=== PATIENT | male | born 1955 | race Caucasian/White ===

== ENCOUNTER → 2017-02-05 | Outpatient (CLI) | payer BC ==
[~2017-02-05] MED LIST: ASPI81TA28 PO; ATEN-175 PO; ATV/2 PO; MISC1CAP60 PO; MISCCAP82 PO
== END | disposition home or self-care (01) ==
LOC: C.LABMFLN 08:06
PROVIDERS: ATTEND Urology
DX: R97.20 Elevated prostate specific antigen [PSA] (principal); N41.9 Inflammatory disease of prostate, unspecified

== ENCOUNTER → 2017-03-12 | Outpatient (CLI) | payer BC | END | disposition home or self-care (01) | LOC: C.RDSM 14:23 | PROVIDERS: ATTEND Family Medicine | DX: G57.52 Tarsal tunnel syndrome, left lower limb (principal) ==

== ENCOUNTER → 2018-02-10 | Outpatient (CLI) | payer BC | END | disposition home or self-care (01) | LOC: C.LABMFLN 08:07 | PROVIDERS: ATTEND Urology | DX: N40.1 Benign prostatic hyperplasia with lower urinary tract symptoms (principal) ==

== ENCOUNTER 2022-01-18 08:14 | Inpatient (IN) ==
[2022-01-18] MEDS ORDERED: ONDANSETRON INJ 2 MG/ML 2 ML VIAL IV STA (08:34)
[2022-01-18] MEDS ORDERED: SODIUM CHLORIDE 0.9% 1000ML 1,000 ML IV STA (08:34)
[2022-01-18] MEDS ORDERED: MoRPHine SULFATE 4 MG/ML 1 ML CARP\\VIAL IV STA ×2 (08:34→09:02)
[2022-01-18 08:43] LABS: Basophils # (auto) 0.03 K/uL (0-0.2); Basophils % (auto) 0.3 %; Eosinophils # (auto) 0.29 K/uL (0-0.50); Eosinophils % (auto) 3.3 %; Hematocrit (blood only) 44.6 % (40.1-51.0); Immature Granulocytes # (auto) 0.03 K/uL (0.00-0.02); Immature Granulocytes % (auto) 0.3 %; Lymphocytes # (auto) 1.14 K/uL (1.2-3.4); Mean Corpuscular Hemoglobin 32.8 pg (25.0-34.0); Mean Corpuscular Hgb Conc 33.6 g/dL (32.0-36.0); Mean Corpuscular Volume 97.4 fL (80.0-100.0); Monocytes # (auto) 0.49 K/uL (0.24-0.82); Monocytes % (auto) 5.6 %; Neutrophils # (auto) 6.76 K/uL (1.4-6.5); Neutrophils % (auto) 77.5 %; Platelet Count 144 K/uL (130-400); RDW Coefficient of Variation 12.1 % (11.5-14.5); RDW Standard Deviation 43.4 fL (36.4-46.3); Red Blood Count 4.58 M/uL (4.63-6.08); White Blood Count 8.74 K/ul (4.8-10.8)
[2022-01-18 08:50] LABS: Appearance Urine Clear (Clear); Bacteria Urine Automated Negative (Negative); Bilirubin Urine Negative (Negative); Blood Urine Negative (Negative); Color Urine Yellow; Glucose Urine UA Negative (Negative); Ketones Urine Negative (Negative); Leukocyte Esterase Urine Trace (Negative); Nitrite Urine Negative (Negative); Protein Urine Negative (Negative); RBC Urine Automated 0-4 /hpf (0-4); Specific Gravity Urine 1.025 (1.000-1.030); Urobilinogen Urine Negative (Negative)
--- NOTE | 2022-01-18 09:08 | Emergency Department Note ---
History of Present Illness General Chief complaint: Abdominal Pain Stated complaint: ABDOMINAL PAIN Time Seen by Provider: 01/18/22 08:21 History of Present Illness Maximum Pain Intensity: 7 66-year-old male who presents to the emergency department with his with complaint of left flank and left lower quadrant/lower abdominal pain radiating into his testicles and scrotum. The patient reports that the pain started this morning around 6 AM, and has progressively worsened. The patient did have a prior history of diverticulitis microperforation approximately 8 years ago. The patient did experience the pain approximately 2 weeks ago, and took prophylactic Cipro/Flagyl with improvement of symptoms. The patient has not noticed any change in stool color or consistency. He denies any urinary symptoms or darkening urine. He denies history of kidney stones. The patient denies any alleviating or aggravating factors for his pain, and rates his discomfort a 7 out of 10. Home Medications Medication Instructions Recorded Confirmed Type atenolol 50 mg tablet 75 mg PO DAILY 01/18/22 01/18/22 History atorvastatin 40 mg tablet 40 mg PO HS 01/18/22 01/18/22 History dutasteride 0.5 mg capsule 0.5 mg PO HS 01/18/22 01/18/22 History ibuprofen 125 mg-acetaminophen 250 1 tab PO BID 01/18/22 01/18/22 History mg tablet (Advil Dual Action) lorazepam 2 mg tablet 2 mg PO BID 01/18/22 01/18/22 History tamsulosin 0.4 mg capsule 0.4 mg PO HS 01/18/22 01/18/22 History Allergies Allergy/AdvReac Type Severity Reaction Status Date / Time No Known Allergies Allergy Unverified 01/11/20 10:41 Past Med/Surg History Medical History Benign prostatic hyperplasia HTN (hypertension) Perforated diverticulitis UTI (urinary tract infection) Surgical History H/O shoulder surgery Social History Smoking Status: Never smoker Tobacco Type: Cigarettes Second Hand Exposure: No; Hx Alcohol Use: No Hx Substance Use: No Preferred Language: Pashto Communication Ability: Effective Dragger Required: No Beliefs That Will Affect Care: None marital status: Current Living Situation: Spouse current occupational status: retired Other Information That Helps Us Care for You: No Feels Safe at Home: Yes Assistive Devices: None Review of Systems 10 system review was performed and was negative except for pertinent positives and negatives as indicated in history of present illness Physical Exam Vital Signs Vital Signs - 24 hr 01/18/22 08:19 01/18/22 10:15 Temperature 36.3 C L Temperature Source Temporal Artery Scan Pulse Rate 76 Pulse Rate [Apical] 78 Respiratory Rate 18 18 Blood Pressure 144/88 H Blood Pressure [Left Arm] 133/77 Blood Pressure Mean 106 Blood Pressure Mean [Left Arm] 95 Pulse Oximetry 95 96 Oxygen Delivery Method Room Air Room Air Sepsis Recent Fever Within 48 Hours No Sepsis New/Unexplained Change in Mental Status No Sepsis Action Taken by Nursing No Action Required CONSTITUTIONAL: Healthy and well nourished. Alert and oriented X 3. Patient appears in mild discomfort. HEENT: No scleral icterus or conjunctival injection/pallor. NECK: Full active range of motion without discomfort. LYMPHATICS: No cervical chain adenopathy. RESPIRATORY: Clear to auscultation bilaterally with no wheezing, crackles, rhonchi or stridor. CARDIOVASCULAR: Regular rate and rhythm with no murmurs, rubs or gallops. GASTROINTESTINAL: Bowel sounds present in all quadrants. Patient has left lower quadrant and lower abdominal tenderness to palpation without rigidity, guarding or rebound. Negative McBurney's point tenderness. Negative CVA tenderness. MUSCULOSKELETAL: Full range of motion of all joints without discomfort. INTEGUMENTARY: No rash or other significant dermatologic conditions noted. HEMATOLOGIC: No ecchymosis or petechiae. PSYCHIATRIC: Positive affect. NEUROLOGIC: No focal neurologic deficits noted. Course Course Patient history and physical exam were performed. Nurses notes were reviewed. Vital signs were reviewed, showing an elevated blood pressure. IV access was established, and labs were drawn. The patient was hydrated with a liter normal saline, and administered IV morphine and Zofran for pain. Urinalysis shows no hematuria or signs of infection. Further review of labs shows a normal white co unt with left shift and 3% bandemia. CMP shows a mildly elevated fasting glucose, otherwise electrolytes, LFTs and lipase are normal. Urinalysis shows no hematuria or evidence of infection. Prior to CT, the patient was administered an additional dose of IV morphine. CT with IV contrast of the ab domen and pelvis shows evidence for acute sigmoid diverticulitis with numerous foci of intraperitoneal free air indicating perforation. There was no evidence for abscess. Findings were discussed with the patient, as well as Dr. Schneider, ED attending physician, who agrees with hospitalist consultation. An order was placed for IV Zosyn. The case was discussed with our [facility] hospitalist, Dr. Mueller, as well as Dae Fields PA-C with general surgery, who indicates that this is a nonsurgical management, and has recommended admission with IV antibiotics. Please see the hospitalist and surgical dictations for further treatment and final disposition. COVID-19 test was negative. Administered Medications Acetaminophen (Ofirmev) 1,000 mg in 100 mls @ 400 mls/hr IV Q8H PRN PRN Reason: Pain or fever Stop: 01/21/22 11:50 Last Infusion: 01/18/22 14:59 Dose: 0 mls/hr Documented by: [id number] Admin: 01/18/22 14:40 Dose: 400 mls/hr Documented by: [id number] Dextrose/Lactated Ringer's (D5w And Lactated Ringers) 1,000 mls @ 125 mls/hr IV .Q8H BINU Stop: 02/17/22 11:59 Last Admin: 01/18/22 12:55 Dose: 125 mls/hr Documented by: [id number] Discontinued Medications Sodium Chloride (Nss 1000ml) 1,000 mls @ 999 mls/hr IV .Q1H1M STA Stop: 01/18/22 09:34 Last Infusion: 01/18/22 10:06 Dose: 0 mls/hr Documented by: [id number] Admin: 01/18/22 08:48 Dose: 999 mls/hr Documented by: [id number] Piperacillin Sod/Tazobactam Sod (Zosyn) 4.5 gm in 120 mls @ 240 mls/hr IV NOW ONE Stop: 01/18/22 10:30 Last Infusion: 01/18/22 10:47 Dose: 0 mls/hr Documented by: [id number] Admin: 01/18/22 10:17 Dose: 240 mls/hr Documented by: [id number] Lactated Ringer's (Lr) 1,000 mls @ 125 mls/hr IV .Q8H BINU Stop: 02/17/22 11:50 Last Admin: 01/18/22 13:25 Dose: Not Given Documented by: [id number] Ioversol (Optiray 320 100ml) 94 ml IV ONCE ONE Stop: 01/18/22 09:26 Last Admin: 01/18/22 09:25 Dose: 94 ml Documented by: [id number] Morphine Sulfate (Morphine Sulfate 4 Mg/Ml 1 Ml Carp\Vial) 4 mg IV NOW STA Stop: 01/18/22 08:35 Last Admin: 01/18/22 08:47 Dose: 4 mg Documented by: [id number] Morphine Sulfate (Morphine Sulfate 4 Mg/Ml 1 Ml Carp\Vial) 4 mg IV NOW STA Stop: 01/18/22 09:03 Last Admin: 01/18/22 09:08 Dose: 4 mg Documented by: [id number] Ondansetron HCl (Ondansetron Inj 2 Mg/Ml 2 Ml Vial) 4 mg IV NOW STA Stop: 01/18/22 08:35 Last Admin: 01/18/22 08:48 Dose: 4 mg Documented by: [id number] Medical Decision Making Medical Records Attestation: I reviewed the patient's medical records. Home Medications Current Medication List: was personally reviewed by me Laboratory Data Attestation: I reviewed the patient's lab results. Result diagrams: 01/18/22 08:30 01/18/22 08:30 Lab Results 01/18/22 01/18/22 01/18/22 Range/Units 08:25 08:30 08:30 WBC 8.74 (4.8-10.8) K/ul RBC 4.58 L (4.63-6.08) M/uL Hgb 15.0 (14.0-18.0) g/dl Hct 44.6 (40.1-51.0) % MCV 97.4 (80.0-100.0) fL MCH 32.8 (25.0-34.0) pg MCHC 33.6 (32.0-36.0) g/dL RDW Std Deviation 43.4 (36.4-46.3) fL RDW Coeff of Gonzalo 12.1 (11.5-14.5) % Plt Count 144 (130-400) K/uL MPV 12.0 (9.4-12.4) fL Immature Gran % (Auto) 0.3 % Neut % (Auto) 77.5 % Lymph % (Auto) 13.0 % Moca % (Auto) 5.6 % Eos % (Auto) 3.3 % Baso % (Auto) 0.3 % Neut # (Auto) 6.76 H (1.4-6.5) K/uL Lymph # (Auto) 1.14 L (1.2-3.4) K/uL Moca # (Auto) 0.49 (0.24-0.82) K/uL Eos # (Auto) 0.29 (0-0.50) K/uL Baso # (Auto) 0.03 (0-0.2) K/uL Immature Gran # (Auto) 0.03 H (0.00-0.02) K/uL Sodium 139 (136-145) mmol/L Potassium 3.7 (3.5-5.1) mmol/L Chloride 105 (98-107) mmol/L Carbon Dioxide 29 (21-32) mmol/L Anion Gap 5 (3-11) BUN 13 (6-23) mg/dl Creatinine 0.83 (0.6-1.4) mg/dl Est Cr Clr Drug Dosing 92.8 ml/min Est GFR ( Amer) 107.8 ml/min Est GFR (Non-Af Amer) 93.0 ml/min BUN/Creatinine Ratio 15.7 (10-20) Glucose 113 H (70-99(Fasting)) mg/dl Calcium 8.6 (8.5-10.1) mg/dl Total Bilirubin 0.9 (0.2-1.0) mg/dl AST 19 (13-39) U/L ALT 20 (7-52) U/L Alkaline Phosphatase 61 (34-104) U/L Total Protein 7.4 (6.0-8.3) gm/dl Albumin 4.5 (3.4-5.0) gm/dl Globulin 2.9 (2.5-4.0) gm/dl Albumin/Globulin Ratio 1.6 (0.9-2) Lipase 31 (11-82) U/L Urine Color Yellow Urine Appearance Clear (Clear) Urine pH 5.0 (4.5-7.5) Ur Specific Alvin 1.025 (1.000-1.030) Urine Protein Negative (Negative) Urine Glucose (UA) Negative (Negative) Urine Ketones Negative (Negative) Urine Blood Negative (Negative) Urine Nitrite Negative (Negative) Urine Bilirubin Negative (Negative) Urine Urobilinogen Negative (Negative) Ur Leukocyte Esterase Trace H (Negative) Urine WBC (Auto) 1-5 (0-5) /hpf Urine RBC (Auto) 0-4 (0-4) /hpf U Hyaline Cast (Auto) 1-5 (0-5) /lpf U Epithel Cells (Auto) 10-20 H (0-5) /lpf Urine Bacteria (Auto) Negative (Negative) SARS-CoV-2, RNA, NAAT (NEGATIVE) 01/18/22 Range/Units 10:10 WBC (4.8-10.8) K/ul RBC (4.63-6.08) M/uL Hgb (14.0-18.0) g/dl Hct (40.1-51.0) % MCV (80.0-100.0) fL MCH (25.0-34.0) pg MCHC (32.0-36.0) g/dL RDW Std Deviation (36.4-46.3) fL RDW Coeff of Gonzalo (11.5-14.5) % Plt Count (130-400) K/uL MPV (9.4-12.4) fL Immature Gran % (Auto) % Neut % (Auto) % Lymph % (Auto) % Moca % (Auto) % Eos % (Auto) % Baso % (Auto) % Neut # (Auto) (1.4-6.5) K/uL Lymph # (Auto) (1.2-3.4) K/uL Moca # (Auto) (0.24-0.82) K/uL Eos # (Auto) (0-0.50) K/uL Baso # (Auto) (0-0.2) K/uL Immature Gran # (Auto) (0.00-0.02) K/uL Sodium (136-145) mmol/L Potassium (3.5-5.1) mmol/L Chloride (98-107) mmol/L Carbon Dioxide (21-32) mmol/L Anion Gap (3-11) BUN (6-23) mg/dl Creatinine (0.6-1.4) mg/dl Est Cr Clr Drug Dosing ml/min Est GFR ( Amer) ml/min Est GFR (Non-Af Amer) ml/min BUN/Creatinine Ratio (10-20) Glucose (70-99(Fasting)) mg/dl Calcium (8.5-10.1) mg/dl Total Bilirubin (0.2-1.0) mg/dl AST (13-39) U/L ALT (7-52) U/L Alkaline Phosphatase (34-104) U/L Total Protein (6.0-8.3) gm/dl Albumin (3.4-5.0) gm/dl Globulin (2.5-4.0) gm/dl Albumin/Globulin Ratio (0.9-2) Lipase (11-82) U/L Urine Color Urine Appearance (Clear) Urine pH (4.5-7.5) Ur Specific Alvin (1.000-1.030) Urine Protein (Negative) Urine Glucose (UA) (Negative) Urine Ketones (Negative) Urine Blood (Negative) Urine Nitrite (Negative) Urine Bilirubin (Negative) Urine Urobilinogen (Negative) Ur Leukocyte Esterase (Negative) Urine WBC (Auto) (0-5) /hpf Urine RBC (Auto) (0-4) /hpf U Hyaline Cast (Auto) (0-5) /lpf U Epithel Cells (Auto) (0-5) /lpf Urine Bacteria (Auto) (Negative) SARS-CoV-2, RNA, NAAT NEGATIVE (NEGATIVE) Imaging Data Attestation: I personally reviewed and interpreted this imaging study as follows: My Impression: My interpretation of CT with IV contrast of the abdomen and pelvis shows evidence for sigmoid diverticulitis, as well as multiple foci of intraperitoneal free air, concerning for perforation. No appendicitis or bowel obstruction noted. Radiologist report was also reviewed. Radiologist's Impression: Abdomen/Pelvis CT 01/18/22 08:34 CT SCAN OF THE ABDOMEN AND PELVIS WITH IV CONTRAST CLINICAL HISTORY: Left lower quadrant abdominal pain. COMPARISON STUDY: Abdominal CT dated 07/20/2013. TECHNIQUE: Following the IV administration of 94 cc of Optiray 320, CT scan of the abdomen and pelvis is performed from the lung bases to the proximal femora. Images are reviewed in the axial, sagittal, and coronal planes. IV contrast was administered without complication. A dose lowering technique was utilized adhering to the principles of ALARA. CT DOSE: 544.44 mGy.cm FINDINGS: Lung bases: The heart is normal in size and without pericardial effusion. The coronary arteries are densely calcified. There is a small hiatal hernia. The lung bases are clear noting bibasilar scarring/atelectasis. Liver: The contrast-enhanced liver is normal in size, contour, and attenuation. There is no intrahepatic biliary ductal dilatation. The hepatic veins and portal veins are patent. Gallbladder: Unremarkable. Spleen: Normal in size and attenuation. Pancreas: Unremarkable. Adrenal glands: Unremarkable. Kidneys: The contrast enhanced kidneys are normal in size and without hydronephrosis. The kidneys enhance symmetrically. A 3.5 cm cyst is noted in the left kidney. Abdominal vasculature: The abdominal aorta is normal in course and caliber noting mild atherosclerotic calcification. Bowel: There is moderate colonic diverticulosis. There is wall thickening with surrounding inflammation involving the sigmoid colon consistent with acute diverticulitis. Adjacent fluid indicates perforation. No organized fluid collection is seen to indicate abscess. There is no bowel obstruction. Moderate fecal retention is noted in the right colon. The appendix is well-visualized and normal. Peritoneum: There are numerous tiny foci of intraperitoneal free air is seen throughout the abdomen. No abdominal ascites is identified. There is a fat- containing umbilical hernia. Lymphadenopathy: Prominent mesenteric lymph nodes are likely reactive. Pelvic viscera: The prostate gland is enlarged and heterogeneous noting median lobe hypertrophy. The bladder wall is thickened and trabeculated indicating chronic outlet obstruction. There are several bladder diverticula which measure up to 3.3 cm. Skeletal structures: There is mild to moderate lumbosacral spondylosis. No lytic or blastic lesions are seen. IMPRESSION: 1. Colonic diverticulosis with evidence of acute sigmoid diverticulitis. 2. There are numerous foci of intraperitoneal free air indicating perforation. 3. No organized fluid collection is seen to suggest abscess. 4. Prostatomegaly with evidence of chronic bladder outlet obstruction. 5. Additional findings as above. ACT 112: Negative or not required by law. Electronically signed by: Enrico Murillo M.D. 01/18/2022 9:44 AM Blood Pressure Blood Pressure Findings: Elevated blood pressure MDM Narrative Patient presents emergency department with complaint of left lower quadrant and left flank pain. Presenting symptoms and physical exam findings were concerning for acute diverticulitis versus renal colic secondary to ureteral calculus. Urinalysis shows no hematuria or signs of infection, and CT imaging also does not show evidence for obstructive uropathy, hydronephrosis or obvious ureteral calculus. CT imaging is concerning for sigmoid diverticulitis with perforation. The case was discussed with surgery, who does not feel that surgical intervention is warranted. They will perform further evaluation, along with the hospitalist service. Impression & Plan Diverticulitis of colon with perforation, Abdominal pain, acute, left lower quadrant Discharge Plan Visit Data Chief Complaint: Abdominal Pain Stated Complaint: ABDOMINAL PAIN ED Midlevel Provider: Crescencio Ferreira Discharge Problem: Diverticulitis of colon with perforation, Abdominal pain, acute, left lower quadrant Patient Disposition: Admitted As Inpatient Discharge Instructions Interventions: ED Discharge Assessment Last Done: 01/18/22 11:17
[2022-01-18 09:14] LABS: Albumin Globulin Ratio 1.6 (0.9-2); Albumin Level 4.5 gm/dl (3.4-5.0); BUN Creatinine Ratio 15.7 (10-20); Bilirubin,Total 0.9 mg/dl (0.2-1.0); Calcium 8.6 mg/dl (8.5-10.1); Creatinine Clr Calc Pharmacy 92.8 ml/min; Est GFR (African American) 107.8 ml/min; Globulin 2.9 gm/dl (2.5-4.0); Potassium 3.7 mmol/L (3.5-5.1); Total Protein 7.4 gm/dl (6.0-8.3)
[2022-01-18] MEDS ORDERED: OPTIRAY 320 100ml IV ONE (09:25)
--- NOTE | 2022-01-18 09:45 | CT Scan Report ---
CT SCAN OF THE ABDOMEN AND PELVIS WITH IV CONTRAST CLINICAL HISTORY: Left lower quadrant abdominal pain. COMPARISON STUDY: Abdominal CT dated 07/20/2013. TECHNIQUE: Following the IV administration of 94 cc of Optiray 320, CT scan of the abdomen and pelvi s is performed from the lung bases to the proximal femora. Images are reviewed in the axial, sagittal , and coronal planes. IV contrast was administered without complication. A dose lowering technique wa s utilized adhering to the principles of ALARA. CT DOSE: 544.44 mGy.cm FINDINGS: Lung bases: The heart is normal in size and without pericardial effusion. The coronary arteries are d ensely calcified. There is a small hiatal hernia. The lung bases are clear noting bibasilar scarring/ atelectasis. Liver: The contrast-enhanced liver is normal in size, contour, and attenuation. There is no intrahepa tic biliary ductal dilatation. The hepatic veins and portal veins are patent. Gallbladder: Unremarkable. Spleen: Normal in size and attenuation. Pancreas: Unremarkable. Adrenal glands: Unremarkable. Kidneys: The contrast enhanced kidneys are normal in size and without hydronephrosis. The kidneys enh ance symmetrically. A 3.5 cm cyst is noted in the left kidney. Abdominal vasculature: The abdominal aorta is normal in course and caliber noting mild atheroscleroti c calcification. Bowel: There is moderate colonic diverticulosis. There is wall thickening with surrounding inflammati on involving the sigmoid colon consistent with acute diverticulitis. Adjacent fluid indicates perfora tion. No organized fluid collection is seen to indicate abscess. There is no bowel obstruction. Moder ate fecal retention is noted in the right colon. The appendix is well-visualized and normal. Peritoneum: There are numerous tiny foci of intraperitoneal free air is seen throughout the abdomen. No abdominal ascites is identified. There is a fat-containing umbilical hernia. Lymphadenopathy: Prominent mesenteric lymph nodes are likely reactive. Pelvic viscera: The prostate gland is enlarged and heterogeneous noting median lobe hypertrophy. The bladder wall is thickened and trabeculated indicating chronic outlet obstruction. There are several b ladder diverticula which measure up to 3.3 cm. Skeletal structures: There is mild to moderate lumbosacral spondylosis. No lytic or blastic lesions a re seen. IMPRESSION: 1. Colonic diverticulosis with evidence of acute sigmoid diverticulitis. 2. There are numerous foci of intraperitoneal free air indicating perforation. 3. No organized fluid collection is seen to suggest abscess. 4. Prostatomegaly with evidence of chronic bladder outlet obstruction. 5. Additional findings as above. ACT 112: Negative or not required by law. Electronically signed by: Enrico Murillo M.D. 01/18/2022 9:44 AM
[2022-01-18] MEDS ORDERED: PIPERACILLIN/TAZOBACTAM 4.5 GM/120 ML BAG IV ONE (10:01)
--- NOTE | 2022-01-18 10:30 | History & Physical Report ---
Date of Service January 18, 2022 Assessment & Plan (1) Perforated diverticulitis: Plan: One hospitalization but multiple other episodes treated at home. Continue IV zosyn. Strict NPO. D5LR @ 125 ml/hr Consult general surgery Follow up colonoscopy as outpatient (2) Benign prostatic hyperplasia: Plan: Continue tamsulosin and dutasteride when able to take PO - will hold for now (3) HTN (hypertension): Plan: Hold atenolol (4) Hyperlipidemia: Plan: Hold atorvastatin while NPO Plan: VTE Prophylaxis - Lovenox 40mg SQ daily Diet - NPO Disposition - admit to med/surg Admission and Anticipated Discharge Date Admission Date: January 18, 2022 History of Present Illness Chief Complaint: Abdominal pain Primary Care Provider: Tomas Lee MD Ashwin Pro is a 66 year old male who presents to the ER with abdominal pain that started at 6am this morning. The pain was severe enough it woke him up. Severity 7/10 at worst, currently 0/10 after morphine given in the ER. Pain mainly on left side of abdomen but also radiates to suprapubic area and left scrotum, worse on releasing pressure. No fever or chills. No diarrhea or constipation. He drinks prune juice on a daily basis to help with chronic constipation which he puts down to his medications. He had a previous diverticulitis episode in 2013 with perforation requiring hospitalization for 6 days. He reports the pain currently appears to be more spread out across his abdomen. He reports approximately 5 episodes treated at home in between then and now. Last colonoscopy 2 years ago. In the ER CT abdomen/pelvis showed evidence of acute diverticulitis with numerous intermediate of intraperitoneal free air indicating perforation. He was referred to medicine for admission and ongoing management. Allergies Allergy/AdvReac Type Severity Reaction Status Date / Time No Known Allergies Allergy Unverified 01/11/20 10:41 Home Medications Medication Instructions Recorded Confirmed Type atenolol 50 mg tablet 75 mg PO DAILY 01/18/22 01/18/22 History atorvastatin 40 mg tablet 40 mg PO HS 01/18/22 01/18/22 History dutasteride 0.5 mg capsule 0.5 mg PO HS 01/18/22 01/18/22 History ibuprofen 125 mg-acetaminophen 250 1 tab PO BID 01/18/22 01/18/22 History mg tablet (Advil Dual Action) lorazepam 2 mg tablet 2 mg PO BID 01/18/22 01/18/22 History tamsulosin 0.4 mg capsule 0.4 mg PO HS 01/18/22 01/18/22 History Past Med/Surg History Medical History Benign prostatic hyperplasia HTN (hypertension) Perforated diverticulitis UTI (urinary tract infection) Surgical History H/O shoulder surgery Social History Smoking Status: Never smoker Tobacco Type: Cigarettes Second Hand Exposure: No; Hx Alcohol Use: No Hx Substance Use: No Preferred Language: Indonesian Communication Ability: Effective Senior Vice President & General Counsel Required: No Beliefs That Will Affect Care: None marital status: Current Living Situation: Spouse current occupational status: retired Other Information That Helps Us Care for You: No Feels Safe at Home: Yes Assistive Devices: None Review of Systems Review of Systems: All systems reviewed & are unremarkable except as noted in HPI & below Physical Exam Constitutional: WD/WN, vitals as above Eyes: + anicteric sclerae; normal pupil size Respiratory: normal respiratory effort, lungs clear to auscultation Cardiovascular: RRR, no murmur, no edema Gastrointestinal (Abdomen): Percussion/Palpation: + abdomen tender (with rebound tenderness throughout, pain worse on LLQ), + guarding (LLQ) and abdomen soft; abdomen not rigid Musculoskeletal: no cyanosis or clubbing, extremities motor strength 5/5 Skin: no rashes, warm and dry Neurologic: moves all extremities and awake; not confused Psychiatric: A+Ox3, euthymic affect Results & Data Results & Data ([facility]) Vital Signs (Past 12 Hours) Vital Signs Temp Pulse Pulse Resp BP BP Pulse Ox 01/18/22 10:15 78 18 133/77 96 01/18/22 08:19 36.3 C L 76 18 144/88 H 95 Laboratory Results Abnormal lab results 01/18/22 01/18/22 01/18/22 Range/Units 08:25 08:30 08:30 RBC 4.58 L (4.63-6.08) M/uL Neut # (Auto) 6.76 H (1.4-6.5) K/uL Lymph # (Auto) 1.14 L (1.2-3.4) K/uL Immature Gran # (Auto) 0.03 H (0.00-0.02) K/uL Glucose 113 H (70-99(Fasting)) mg/dl Ur Leukocyte Esterase Trace H (Negative) U Epithel Cells (Auto) 10-20 H (0-5) /lpf Diagnostic Findings CT SCAN OF THE ABDOMEN AND PELVIS WITH IV CONTRAST CLINICAL HISTORY: Left lower quadrant abdominal pain. COMPARISON STUDY: Abdominal CT dated 07/20/2013. TECHNIQUE: Following the IV administration of 94 cc of Optiray 320, CT scan of the abdomen and pelvis is performed from the lung bases to the proximal femora. Images are reviewed in the axial, sagittal, and coronal planes. IV contrast was administered without complication. A dose lowering technique was utilized adhering to the principles of ALARA. CT DOSE: 544.44 mGy.cm FINDINGS: Lung bases: The heart is normal in size and without pericardial effusion. The coronary arteries are densely calcified. There is a small hiatal hernia. The lung bases are clear noting bibasilar scarring/atelectasis. Liver: The contrast-enhanced liver is normal in size, contour, and attenuation. There is no intrahepatic biliary ductal dilatation. The hepatic veins and portal veins are patent. Gallbladder: Unremarkable. Spleen: Normal in size and attenuation. Pancreas: Unremarkable. Adrenal glands: Unremarkable. Kidneys: The contrast enhanced kidneys are normal in size and without hydronephrosis. The kidneys enhance symmetrically. A 3.5 cm cyst is noted in the left kidney. Abdominal vasculature: The abdominal aorta is normal in course and caliber noting mild atherosclerotic calcification. Bowel: There is moderate colonic diverticulosis. There is wall thickening with surrounding inflammation involving the sigmoid colon consistent with acute diverticulitis. Adjacent fluid indicates perforation. No organized fluid collection is seen to indicate abscess. There is no bowel obstruction. Moderate fecal retention is noted in the right colon. The appendix is well-visualized and normal. Peritoneum: There are numerous tiny foci of intraperitoneal free air is seen thr oughout the abdomen. No abdominal ascites is identified. There is a fat- containing umbilical hernia. Lymphadenopathy: Prominent mesenteric lymph nodes are likely reactive. Pelvic viscera: The prostate gland is enlarged and heterogeneous noting median lobe hypertrophy. The bladder wall is thickened and trabeculated indicating chronic outlet obstruction. There are several bladder diverticula which measure up to 3.3 cm. Skeletal structures: There is mild to moderate lumbosacral spondylosis. No lytic or blastic lesions are seen. IMPRESSION: 1. Colonic diverticulosis with evidence of acute sigmoid diverticulitis. 2. There are numerous foci of intraperitoneal free air indicating perforation. 3. No organized fluid collection is seen to suggest abscess. 4. Prostatomegaly with evidence of chronic bladder outlet obstruction. 5. Additional findings as above. Medications Administered ER Medications Given: NSS 1L bolus Morphine 4mg IV x2 Zosyn 4.5g IV Code Status & VTE Plan Code Status Full VTE Prophylaxis Plan VTE Prophylaxis will be ordered: Yes PG Care Time/CCT Total # of Minutes Spent Total Time Spent with Patient: Total time spent is greater than 50% in coordination of care (as documented) at patient's floor/unit and/or counseling patient: Coding Level of Care Code 26194 Initial Inpt Care Lvl 2 Diagnoses Perforated diverticulitis K57.80 Benign prostatic hyperplasia N40.0 HTN (hypertension) I10 Hyperlipidemia E78.5
[2022-01-18] MEDS ORDERED: LACTATED RINGER'S 1,000 ML IV SCH (11:51)
[2022-01-18] MEDS ORDERED: MoRPHine SULFATE 4 MG/ML 1 ML CARP\\VIAL IV PRN (11:51)
--- NOTE | 2022-01-18 12:03 | Surgery Consultation ---
Date of Consultation January 18, 2022 Assessment & Plan (1) Perforated diverticulitis: Recurrent diverticulitis, microperforation. No acute abdominal findings, white count normal. Continue Zosyn and keep NPO for 24-48 hours. Expect he will improve on IV therapy, but nearing the point of discussing elective resection in the future. Supervising Physician Co-Signing Physician Notes Dr. Alarcon saw the patient in his room with his at bedside-he appears to be very stable to present time He does have some lower abdominal and left-sided abdominal pain and tenderness. We will continue him n.p.o. for now Possibly give him some ice over the next 48 hours and then begin clear liquids and advance slowly He will likely require 4 to 5 days of IV antibiotics and then p.o. antibiotics for approximately 2 weeks total He may require colonoscopy sooner than the 5-year plan We may consider CT scan if the patient worsens History of Present Illness Attending Physician: Bairon Mueller MD History of Present Illness 66 y/o male hospitalized 8 years ago for first attack of diverticulitis with microperforation. Has had 5 attacks since and has supply of cipro/flagyl at home. He had symptoms about a month ago and completed 14 days of antibiotics. Nicholls normal over past two weeks until this morning he woke up with severe LLQ pain. Also his pain last month was more intense than usual. No fevers or chills. Takes prune juice daily for 2+ years, bowel movements have been normal recently. Last colonoscopy in Aug 2019. Allergies Allergy/AdvReac Type Severity Reaction Status Date / Time No Known Allergies Allergy Unverified 01/11/20 10:41 Home Medications Medication Instructions Recorded Confirmed Type atenolol 50 mg tablet 75 mg PO DAILY 01/18/22 01/18/22 History atorvastatin 40 mg tablet 40 mg PO HS 01/18/22 01/18/22 History dutasteride 0.5 mg capsule 0.5 mg PO HS 01/18/22 01/18/22 History ibuprofen 125 mg-acetaminophen 250 1 tab PO BID 01/18/22 01/18/22 History mg tablet (Advil Dual Action) lorazepam 2 mg tablet 2 mg PO BID 01/18/22 01/18/22 History tamsulosin 0.4 mg capsule 0.4 mg PO HS 01/18/22 01/18/22 History Patient History Medical History Benign prostatic hyperplasia HTN (hypertension) Perforated diverticulitis UTI (urinary tract infection) Surgical History H/O shoulder surgery Social History Smoking Status: Never smoker Tobacco Type: Cigarettes Second Hand Exposure: No; Hx Alcohol Use: No Hx Substance Use: No Preferred Language: Serbian Communication Ability: Effective Air Crew Supervisor Required: No Beliefs That Will Affect Care: None marital status: Current Living Situation: Spouse current occupational status: retired Other Information That Helps Us Care for You: No Feels Safe at Home: Yes Assistive Devices: None Review of Systems Constitutional: no fever, no chills, no malaise and no anorexia Gastrointestinal: + abdominal pain and + bloating; no nausea, no vomiting, no change in bowel habits, no constipation and no diarrhea/loose stools Physical Exam Constitutional: WD/WN, vitals as above Respiratory: normal respiratory effort, lungs clear to auscultation Cardiovascular: RRR, no murmur, no edema Gastrointestinal (Abdomen): Inspection/Auscultation: abdomen not distended Percussion/Palpation: + abdomen tender (LLQ), + guarding and abdomen soft Results & Data ([facility]) Vital Signs (Past 12 Hours) Vital Signs Temp Pulse Pulse Resp BP BP Pulse Ox 01/18/22 10:15 78 18 133/77 96 01/18/22 08:19 36.3 C L 76 18 144/88 H 95 PG Care Time/CCT Total # of Minutes Spent Total Time Spent with Patient: Total time spent is greater than 50% in coordination of care (as documented) at patient's floor/unit and/or counseling patient: Coding Level of Care Code 23287 Inpt Consult Level 3 Diagnoses Perforated diverticulitis K57.80
[2022-01-18] MEDS: D5W AND LACTATED RINGERS 1,000 ML IV SCH ×2 (12:55→20:28)
[2022-01-18] MEDS: ACETAMINOPHEN 1,000 MG/100 ML VIAL IV PRN (14:40)
[2022-01-18] MEDS: PIPERACILLIN/TAZOBACTAM 3.375 GM in DEXTROSE 5% 100 ML IV SCH (20:26)
[2022-01-18] MEDS: ENOXAPARIN INJ 40 MG/0.4 ML SYR SQ SCH (20:30)
[2022-01-18] MEDS ORDERED: diphenhydrAMINE 50 MG/ML VIAL IV ONE (22:49)
[2022-01-19] MEDS: ONDANSETRON INJ 2 MG/ML 2 ML VIAL IV PRN ×2 (01:18→08:07)
[2022-01-19] MEDS: ACETAMINOPHEN 1,000 MG/100 ML VIAL IV PRN (02:13)
[2022-01-19] MEDS: PIPERACILLIN/TAZOBACTAM 3.375 GM in DEXTROSE 5% 100 ML IV SCH ×3 (03:48→19:24)
[2022-01-19] MEDS: D5W AND LACTATED RINGERS 1,000 ML IV SCH ×2 (03:50→13:42)
--- NOTE | 2022-01-19 05:12 | Surgery Progress Note ---
Date of Service January 19, 2022 Assessment & Plan (1) Diverticulitis of colon with perforation: Plan: Patient has been admitted on the hospitalist service. We recommend continued care as follows: -Continue n.p.o. status with consideration of advancing his diet beginning with ice chips once his clinical status improves further Continue IV fluids for hydration Continue antibiotics in form of Zosyn; will likely require total of 4 to 5 days of IV antibiotics with transition to oral antibiotics to complete a total of 2 weeks Check a.m. labs when available Admission and Anticipated Discharge Date Admission Date: January 18, 2022 Supervising Physician Co-Signing Physician Notes Dr. Hellerpatient continues with some pain although received IV Tylenol and not narcotic. His abdomen is relatively flat and soft Vital signs are stable. We will give ice today and then possibly clear liquids tomorrow. Continue IV antibiotics Encourage patient to ambulate some-continue medical management Subjective Patient is resting comfortably in bed. He notes continued pain which is greatest in the left lower quadrant but does state that has improved since admission. He reports some intermittent nausea without vomiting. He is not moving his bowels and is not passing flatus. He notes he is voiding without difficulty. He denies any shortness of breath. Physical Exam Gastrointestinal (Abdomen): Abdomen is soft, nonrigid, and nondistended. There is pain with palpation is greatest in the left lower quadrant. There is slight rebound tenderness. Results & Data ([facility]) Vital Signs (Past 12 Hours) Vital Signs Temp Pulse Resp BP Pulse Ox 01/18/22 22:21 37.1 C 77 16 127/73 95 PG Care Time/CCT Total # of Minutes Spent Total Time Spent with Patient: Total time spent is greater than 50% in coordination of care (as documented) at patient's floor/unit and/or counseling patient: Coding Level of Care Code 78616 Subseq Hosp Care Lvl 1 Diagnoses Diverticulitis of colon with perforation K57.20
[2022-01-19 06:45] LABS: BUN Creatinine Ratio 9.9 (10-20); Calcium 8.1 mg/dl (8.5-10.1); Creatinine Clr Calc Pharmacy 95.1 ml/min; Est GFR (African American) 108.9 ml/min; Est GFR (Non-African American) 93.9 ml/min; Potassium 3.4 mmol/L (3.5-5.1)
[2022-01-19 07:03] LABS: Basophils # (auto) 0.03 K/uL (0-0.2); Basophils % (auto) 0.4 %; Eosinophils # (auto) 0.03 K/uL (0-0.50); Eosinophils % (auto) 0.4 %; Hematocrit (blood only) 38.9 % (40.1-51.0); Immature Granulocytes # (auto) 0.03 K/uL (0.00-0.02); Immature Granulocytes % (auto) 0.4 %; Lymphocytes # (auto) 1.03 K/uL (1.2-3.4); Mean Corpuscular Hemoglobin 32.9 pg (25.0-34.0); Mean Corpuscular Hgb Conc 33.4 g/dL (32.0-36.0); Mean Corpuscular Volume 98.5 fL (80.0-100.0); Mean Platelet Volume 12.7 fL (9.4-12.4); Monocytes # (auto) 0.34 K/uL (0.24-0.82); Monocytes % (auto) 4.3 %; Neutrophils # (auto) 6.49 K/uL (1.4-6.5); Neutrophils % (auto) 81.5 %; Platelet Count 117 K/uL (130-400); Platelet Estimate Decreased (Normal); RDW Coefficient of Variation 12.1 % (11.5-14.5); RDW Standard Deviation 44.2 fL (36.4-46.3); Red Blood Count 3.95 M/uL (4.63-6.08); White Blood Count 7.95 K/ul (4.8-10.8)
[2022-01-19] MEDS ORDERED: LORazepam 1 MG in SYRINGE 0.5 ML IV STA (13:14)
--- NOTE | 2022-01-19 17:46 | Hospitalist Progress Note ---
Date of Service January 19, 2022 Assessment & Plan (1) Perforated diverticulitis: Plan: One hospitalization but multiple other episodes treated at home. Continue IV zosyn. NPO - ice chips qshift ordered by surgery Continue D5LR @ 125 ml/hr Appreciate general surgery recommendations Follow up colonoscopy as outpatient (2) Benign prostatic hyperplasia: Plan: Continue tamsulosin and dutasteride when able to take PO - will hold for now (3) HTN (hypertension): Plan: Hold atenolol (4) Hyperlipidemia: Plan: Hold atorvastatin while NPO (5) Anxiety: Plan: Switch lorazepam frmo PO 2mg BID to IV BID with initial 1mg dose now to make sure he isn't overly sedated. Plan: VTE Prophylaxis - Lovenox 40mg SQ daily Diet - NPO Disposition - admit to med/surg Admission and Anticipated Discharge Date Admission Date: January 18, 2022 Subjective Still having significant abdominal pain. Currently NPO. Did not have a good night sleep last night as missing his medications. He takes lorazepam 2mg PO BID regularly and also uses Tyelenol PM to sleep. No fever, chills, worsening abdominal pain. No change in urinary symptoms with holding his tamsulosin and finasteride. Review of Systems Review of Systems: All systems reviewed & are unremarkable except as noted in HPI & below Physical Exam Constitutional: WD/WN, vitals as above Eyes: + anicteric sclerae; normal pupil size Respiratory: normal respiratory effort, lungs clear to auscultation Cardiovascular: RRR, no murmur, no edema Gastrointestinal (Abdomen): Percussion/Palpation: + abdomen tender (with rebound tenderness throughout, pain worse on LLQ), + guarding (LLQ) and abdomen soft; abdomen not rigid Musculoskeletal: no cyanosis or clubbing, extremities motor strength 5/5 Skin: no rashes, warm and dry Neurologic: moves all extremities and awake; not confused Psychiatric: A+Ox3, euthymic affect Results & Data Results & Data ([facility]) Vital Signs (Past 12 Hours) Vital Signs Temp Pulse Resp BP Pulse Ox 01/19/22 15:32 37.4 C 69 16 116/67 92 01/19/22 07:04 36.8 C 62 17 124/72 93 PG Care Time/CCT Total # of Minutes Spent Total Time Spent with Patient: Total time spent is greater than 50% in coordination of care (as documented) at patient's floor/unit and/or counseling patient: Coding Level of Care Code 49157 Subseq Hosp Care Lvl 2 Diagnoses Perforated diverticulitis K57.80 Benign prostatic hyperplasia N40.0 HTN (hypertension) I10 Hyperlipidemia E78.5 Anxiety F41.9
[2022-01-19] MEDS: D5W AND 1/2NSS + 20MEQ KCL 20 MEQ/1,000 ML BAG IV SCH (19:30)
[2022-01-19] MEDS: ENOXAPARIN INJ 40 MG/0.4 ML SYR SQ SCH (20:35)
[2022-01-19] MEDS: LORazepam 2 MG in SYRINGE 1 ML IV SCH (22:49)
[2022-01-20] MEDS: D5W AND 1/2NSS + 20MEQ KCL 20 MEQ/1,000 ML BAG IV SCH ×3 (03:14→19:15)
[2022-01-20] MEDS: PIPERACILLIN/TAZOBACTAM 3.375 GM in DEXTROSE 5% 100 ML IV SCH ×3 (03:16→19:58)
--- NOTE | 2022-01-20 05:32 | Surgery Progress Note ---
Date of Service January 20, 2022 Assessment & Plan (1) Diverticulitis of colon with perforation: Plan: Patient has been admitted on the hospitalist service. Continued care as follows: We will begin clear liquids Continue IV fluids for hydration until oral intake is adequate Continue antibiotics in form of Zosyn; plan on 4 to 5 days of IV antibiotics with transition to oral antibiotics to complete a 2-week course Admission and Anticipated Discharge Date Admission Date: January 18, 2022 Supervising Physician Co-Signing Physician Notes Dr. Hellerpatient's pain is improved-he is taking minimal pain medication and no narcotics He is very awake and alert his vital signs are stable -we will begin clear liquids and I told him to take some sips At first and then advance amount later today-clear liquids only for now Continue IV antibiotics If he progresses we will repeat CAT scan as an outpatient, may consider colo rectal evaluation in the future Subjective Patient notes that he is doing well. He denies any fevers, shakes, or chills. No nausea or vomiting. He reports having a bowel movement last night. He notes that his abdominal pain is still present but continues to improve. He is urinating without difficulty. Physical Exam Gastrointestinal (Abdomen): Abdomen is soft, nonrigid, nondistended. No rebound tenderness or guarding this morning. There is pain noted with palpation in the left lower quadrant but this is improved since yesterday's exam. Bowel sounds are present. Results & Data ([facility]) Vital Signs (Past 12 Hours) Vital Signs Temp Pulse Resp BP Pulse Ox 01/19/22 22:02 37.3 C 73 16 132/77 93 PG Care Time/CCT Total # of Minutes Spent Total Time Spent with Patient: Total time spent is greater than 50% in coordination of care (as documented) at patient's floor/unit and/or counseling patient: Coding Level of Care Code 66624 Subseq Hosp Care Lvl 1 Diagnoses Diverticulitis of colon with perforation K57.20
[2022-01-20 05:57] LABS: Calcium 8.6 mg/dl (8.5-10.1); Creatinine Clr Calc Pharmacy 92.8 ml/min; Est GFR (African American) 107.8 ml/min; Potassium 3.5 mmol/L (3.5-5.1)
[2022-01-20] MEDS: LORazepam 2 MG in SYRINGE 1 ML IV SCH ×2 (09:10→21:57)
--- NOTE | 2022-01-20 16:44 | Hospitalist Progress Note ---
Date of Service January 20, 2022 Assessment & Plan (1) Perforated diverticulitis: Plan: One hospitalization but multiple other episodes treated at home. Continue IV zosyn. Tolerating clear liquid diet Continue D5LR @ 125 ml/hr Appreciate general surgery recommendations Follow up colonoscopy as outpatient (2) Benign prostatic hyperplasia: Plan: Continue tamsulosin and dutasteride when able to take PO - will hold for now (3) HTN (hypertension): Plan: Hold atenolol (4) Hyperlipidemia: Plan: Hold atorvastatin while NPO (5) Anxiety: Plan: Switch lorazepam frmo PO 2mg BID to IV BID with initial 1mg dose now to make sure he isn't overly sedated. Plan: VTE Prophylaxis - Lovenox 40mg SQ daily Diet - NPO Disposition - admit to med/surg Admission and Anticipated Discharge Date Admission Date: January 18, 2022 Subjective patient seen and examined, tolerating CLD Review of Systems Review of Systems: All systems reviewed are negative, apart from the ones contained in the history. Physical Exam Physical Exam: The patient is awake, alert and oriented 3, well developed and well nourished, normocephalic and atraumatic, lying in bed and in no acute distress. HEENT--PERRL, EOMI, mucous membranes and oropharynx mildly dry Neck--supple. No JVD. No bruits. Thyroid normal, trachea midline, no adenopathy. Heart--normal S1 and S2. No murmurs, rubs or gallops. Lungs--clear bilaterally, no respiratory distress, no accessory muscle use. Abdomen--normal bowel sounds and soft. Mild epigastric and left sided abdominal pain Extremities--no cyanosis or clubbing. No edema. Dermatologic--normal skin turgor, normal color, no abnormal lymph nodes, no rash. Neurologic--cranial nerves II through XII grossly intact. Rheumatologic--normal range of motion. Psychiatric--normal affect. Results & Data Results & Data ([facility]) Vital Signs (Past 12 Hours) Vital Signs Temp Pulse Resp BP Pulse Ox 01/20/22 15:16 98.6 F 72 14 132/72 96 01/20/22 08:01 98.8 F 70 16 139/91 94 PG Care Time/CCT Total # of Minutes Spent Total Time Spent with Patient: Total time spent is greater than 50% in coordination of care (as documented) at patient's floor/unit and/or counseling patient: Coding Level of Care Code 92854 Subseq Hosp Care Lvl 2 Diagnoses Perforated diverticulitis K57.80 Benign prostatic hyperplasia N40.0 HTN (hypertension) I10 Hyperlipidemia E78.5 Anxiety F41.9 Time Spent (min) 35
[2022-01-20] MEDS: ENOXAPARIN INJ 40 MG/0.4 ML SYR SQ SCH (20:03)
[2022-01-21] MEDS: D5W AND 1/2NSS + 20MEQ KCL 20 MEQ/1,000 ML BAG IV SCH ×2 (02:10→09:27)
[2022-01-21] MEDS: PIPERACILLIN/TAZOBACTAM 3.375 GM in DEXTROSE 5% 100 ML IV SCH ×3 (02:17→18:58)
[2022-01-21] MEDS: ACETAMINOPHEN 1,000 MG/100 ML VIAL IV PRN (06:18)
[2022-01-21 07:02] LABS: Hematocrit (blood only) 38.6 % (40.1-51.0); Hemoglobin 13.1 g/dl (14.0-18.0); Mean Corpuscular Hemoglobin 32.9 pg (25.0-34.0); Mean Corpuscular Hgb Conc 33.9 g/dL (32.0-36.0); Mean Platelet Volume 12.1 fL (9.4-12.4); Platelet Count 145 K/uL (130-400); RDW Coefficient of Variation 12.1 % (11.5-14.5); RDW Standard Deviation 43.5 fL (36.4-46.3); Red Blood Count 3.98 M/uL (4.63-6.08); White Blood Count 4.78 K/ul (4.8-10.8)
[2022-01-21 07:21] LABS: BUN Creatinine Ratio 2.6 (10-20); Calcium 8.5 mg/dl (8.5-10.1); Creatinine Clr Calc Pharmacy 100.1 ml/min; Est GFR (African American) 111.2 ml/min; Est GFR (Non-African American) 95.9 ml/min; Potassium 3.6 mmol/L (3.5-5.1)
[2022-01-21] MEDS: LORazepam 2 MG in SYRINGE 1 ML IV SCH ×2 (09:28→20:57)
--- NOTE | 2022-01-21 12:55 | Hospitalist Progress Note ---
Date of Service January 21, 2022 Assessment & Plan (1) Perforated diverticulitis: Plan: One hospitalization but multiple other episodes treated at home. Continue IV zosyn. Tolerating clear liquid diet, will advance to regular diet Stop IV Fluids Continue zosyn, transition to Augmentin tomorrow for 2 more weeks Appreciate general surgery recommendations Follow up colonoscopy as outpatient (2) Benign prostatic hyperplasia: Plan: Continue tamsulosin and dutasteride when able to take PO - will hold for now (3) HTN (hypertension): Plan: Hold atenolol (4) Hyperlipidemia: Plan: Hold atorvastatin while NPO (5) Anxiety: Plan: Switch lorazepam frmo PO 2mg BID to IV BID with initial 1mg dose now to make sure he isn't overly sedated. Plan: VTE Prophylaxis - Lovenox 40mg SQ daily Diet - NPO Disposition - admit to med/surg Admission and Anticipated Discharge Date Admission Date: January 18, 2022 Subjective patient seen and examined, tolerating CLD Review of Systems Review of Systems: All systems reviewed are negative, apart from the ones contained in the history. Physical Exam Physical Exam: The patient is awake, alert and oriented 3, well developed and well nourished, normocephalic and atraumatic, lying in bed and in no acute distress. HEENT--PERRL, EOMI, mucous membranes and oropharynx mildly dry Neck--supple. No JVD. No bruits. Thyroid normal, trachea midline, no adenopathy. Heart--normal S1 and S2. No murmurs, rubs or gallops. Lungs--clear bilaterally, no respiratory distress, no accessory muscle use. Abdomen--normal bowel sounds and soft. Mild epigastric and left sided abdominal pain Extremities--no cyanosis or clubbing. No edema. Dermatologic--normal skin turgor, normal color, no abnormal lymph nodes, no rash. Neurologic--cranial nerves II through XII grossly intact. Rheumatologic--normal range of motion. Psychiatric--normal affect. Results & Data Results & Data ([facility]) Vital Signs (Past 12 Hours) Vital Signs Temp Pulse Resp BP Pulse Ox 01/21/22 07:33 97.9 F 54 L 16 129/79 95 PG Care Time/CCT Total # of Minutes Spent Total Time Spent with Patient: Total time spent is greater than 50% in coordination of care (as documented) at patient's floor/unit and/or counseling patient: Coding Level of Care Code 39366 Subseq Hosp Care Lvl 2 Diagnoses Perforated diverticulitis K57.80 Benign prostatic hyperplasia N40.0 HTN (hypertension) I10 Hyperlipidemia E78.5 Anxiety F41.9 Time Spent (min) 35
[2022-01-21] MEDS: ENOXAPARIN INJ 40 MG/0.4 ML SYR SQ SCH (20:58)
[2022-01-22] MEDS: PIPERACILLIN/TAZOBACTAM 3.375 GM in DEXTROSE 5% 100 ML IV SCH (03:14)
--- NOTE | 2022-01-22 07:14 | Surgery Progress Note ---
Date of Service January 22, 2022 Assessment & Plan (1) Diverticulitis of colon with perforation: Plan: Advance diet to low fiber today Ask dietitian to see the patient for home low fiber diet for 1 to 2 weeks Possible discharge home tomorrow Will continue Augmentin as described in the medical team's note Will likely obtain follow-up with [facility]-possibly here in [place] at their office With patient's multiple episodes may consider surgery in the future Admission and Anticipated Discharge Date Admission Date: January 18, 2022 Subjective Patient awake and alert Minimal pain and no pain medicine taken Bowels are moving C. difficile is negative Review of Systems Review of Systems: All systems reviewed & are unremarkable except as noted in HPI & below Physical Exam Physical Exam: Patient's abdomen is flat and soft he does have some mild discomfort in the lower abdomen to deep palpation Constitutional: well developed and well nourished; no acute distress Eyes: + anicteric sclerae Respiratory: normal respiratory effort; no respiratory distress Cardiovascular: Rate/Rhythm: regular rate Gastrointestinal (Abdomen): Percussion/Palpation: abdomen soft Musculoskeletal: Gait: normal gait Skin: no rashes, warm and dry Neurologic: awake Psychiatric: Orientation: alert Results & Data ([facility]) Vital Signs (Past 12 Hours) Vital Signs Temp Pulse Resp BP Pulse Ox 01/21/22 23:16 36.5 C 52 L 16 118/72 95 PG Care Time/CCT Total # of Minutes Spent Total Time Spent with Patient: Total time spent is greater than 50% in coordination of care (as documented) at patient's floor/unit and/or counseling patient: Coding Level of Care Code 20568 Inpt Consult Level 3 Diagnoses Diverticulitis of colon with perforation K57.20
[2022-01-22] MEDS: AMOXICILLIN/CLAVULANATE 875 MG TAB PO SCH ×2 (08:16→17:29)
[2022-01-22] MEDS: LORazepam 2 MG in SYRINGE 1 ML IV SCH ×2 (08:16→21:54)
--- NOTE | 2022-01-22 16:32 | Hospitalist Progress Note ---
Date of Service January 22, 2022 Assessment & Plan (1) Perforated diverticulitis: Plan: One hospitalization but multiple other episodes treated at home. Tolerating low fiber diet Continue Augmentin for 2 more weeks Appreciate general surgery recommendations Follow up colonoscopy as outpatient Follow up general surgery outpatient (2) Benign prostatic hyperplasia: Plan: Continue tamsulosin and dutasteride when able to take PO - will hold for now (3) HTN (hypertension): Plan: Hold atenolol (4) Hyperlipidemia: Plan: Hold atorvastatin while NPO (5) Anxiety: Plan: Switch lorazepam frmo PO 2mg BID to IV BID with initial 1mg dose now to make sure he isn't overly sedated. Plan: VTE Prophylaxis - Lovenox 40mg SQ daily Diet - NPO Disposition - admit to med/surg Admission and Anticipated Discharge Date Admission Date: January 18, 2022 Subjective patient seen and examined, moving his bowels, passing gas Review of Systems Review of Systems: All systems reviewed are negative, apart from the ones contained in the history. Physical Exam Physical Exam: The patient is awake, alert and oriented 3, well developed and well nourished, normocephalic and atraumatic, lying in bed and in no acute distress. HEENT--PERRL, EOMI, mucous membranes and oropharynx mildly dry Neck--supple. No JVD. No bruits. Thyroid normal, trachea midline, no adenopathy. Heart--normal S1 and S2. No murmurs, rubs or gallops. Lungs--clear bilaterally, no respiratory distress, no accessory muscle use. Abdomen--normal bowel sounds and soft. Mild epigastric and left sided abdominal pain Extremities--no cyanosis or clubbing. No edema. Dermatologic--normal skin turgor, normal color, no abnormal lymph nodes, no rash. Neurologic--cranial nerves II through XII grossly intact. Rheumatologic--normal range of motion. Psychiatric--normal affect. Results & Data Results & Data ([facility]) Vital Signs (Past 12 Hours) Vital Signs Temp Pulse Resp BP Pulse Ox 01/22/22 15:28 98.2 F 65 20 138/87 94 01/22/22 07:41 98.1 F 54 L 20 127/78 94 PG Care Time/CCT Total # of Minutes Spent Total Time Spent with Patient: Total time spent is greater than 50% in coordination of care (as documented) at patient's floor/unit and/or counseling patient: Coding Level of Care Code 84914 Subseq Hosp Care Lvl 2 Diagnoses Perforated diverticulitis K57.80 Benign prostatic hyperplasia N40.0 HTN (hypertension) I10 Hyperlipidemia E78.5 Anxiety F41.9 Time Spent (min) 35
[2022-01-22] MEDS: ENOXAPARIN INJ 40 MG/0.4 ML SYR SQ SCH (21:54)
--- NOTE | 2022-01-23 07:35 | Surgery Progress Note ---
Date of Service January 23, 2022 Assessment & Plan (1) Diverticulitis of colon with perforation: Plan: Patient doing very well Can be discharged home from surgical standpoint Information written in the discharge I do not think he requires pain medication Plan for p.o. Augmentin for 2 weeks Follow-up in surgical office and likely with [facility] Admission and Anticipated Discharge Date Admission Date: January 18, 2022 Subjective Patient doing very well Tolerating diet Wants to go home Review of Systems Review of Systems: All systems reviewed are negative, apart from the ones contained in the history. Physical Exam Physical Exam: His abdomen is flat and soft with minimal tenderness The patient is awake, alert and oriented 3, well developed and well nourished, normocephalic and atraumatic, lying in bed and in no acute distress. HEENT--PERRL, EOMI, mucous membranes and oropharynx mildly dry Neck--supple. No JVD. No bruits. Thyroid normal, trachea midline, no adenopathy. Heart--normal S1 and S2. No murmurs, rubs or gallops. Lungs--clear bilaterally, no respiratory distress, no accessory muscle use. Abdomen--normal bowel sounds and soft. Mild epigastric and left sided abdominal pain Extremities--no cyanosis or clubbing. No edema. Dermatologic--normal skin turgor, normal color, no abnormal lymph nodes, no rash. Neurologic--cranial nerves II through XII grossly intact. Rheumatologic--normal range of motion. Psychiatric--normal affect. Results & Data ([facility]) Vital Signs (Past 12 Hours) Vital Signs Temp Pulse Resp BP Pulse Ox O2 Del Method 01/22/22 23:59 36.8 C 67 16 144/84 H 96 Room Air PG Care Time/CCT Total # of Minutes Spent Total Time Spent with Patient: Total time spent is greater than 50% in coordination of care (as documented) at patient's floor/unit and/or counseling patient: Coding Level of Care Code 07119 Subseq Hosp Care Lvl 2 Diagnoses Diverticulitis of colon with perforation K57.20
[2022-01-23] MEDS: AMOXICILLIN/CLAVULANATE 875 MG TAB PO SCH (07:54)
[2022-01-23] MEDS: LORazepam 2 MG in SYRINGE 1 ML IV SCH (07:55)
--- NOTE | 2022-01-23 16:35 | Discharge Summary ---
Date of Service January 23, 2022 Admission HPI Per Admitting Provider Ashwin Pro is a 66 year old male who presents to the ER with abdominal pain that started at 6am this morning. The pain was severe enough it woke him up. Severity 7/10 at worst, currently 0/10 after morphine given in the ER. Pain mainly on left side of abdomen but also radiates to suprapubic area and left scrotum, worse on releasing pressure. No fever or chills. No diarrhea or constipation. He drinks prune juice on a daily basis to help with chronic constipation which he puts down to his medications. He had a previous diverticulitis episode in 2013 with perforation requiring hospitalization for 6 days. He reports the pain currently appears to be more spread out across his abdomen. He reports approximately 5 episodes treated at home in between then and now. Last colonoscopy 2 years ago. In the ER CT abdomen/pelvis showed evidence of acute diverticulitis with numerous chcf of intraperitoneal free air indicating perforation. He was referred to medicine for admission and ongoing management. Principal Diagnosis acute diverticulitis with perforation Discharge Exam The patient is awake, alert and oriented 3, well developed and well nourished, normocephalic and atraumatic, lying in bed and in no acute distress. HEENT--PERRL, EOMI, mucous membranes and oropharynx mildly dry Neck--supple. No JVD. No bruits. Thyroid normal, trachea midline, no adenopathy. Heart--normal S1 and S2. No murmurs, rubs or gallops. Lungs--clear bilaterally, no respiratory distress, no accessory muscle use. Abdomen--normal bowel sounds and soft. Mild epigastric and left sided abdominal pain Extremities--no cyanosis or clubbing. No edema. Dermatologic--normal skin turgor, normal color, no abnormal lymph nodes, no rash. Neurologic--cranial nerves II through XII grossly intact. Rheumatologic--normal range of motion. Psychiatric--normal affect. Discharge Data Allergies Allergy/AdvReac Type Severity Reaction Status Date / Time No Known Allergies Allergy Unverified 01/11/20 10:41 Consultations 01/18/22 10:30 Consult General Surgery Stat 01/18/22 10:31 ED Decision to Admit Stat Ordered Studies 01/18/22 08:34 CT abd pelvis IV con only Stat Hospital Course (1) Perforated diverticulitis: One hospitalization but multiple other episodes treated at home. Tolerating low fiber diet Continue Augmentin for 2 more weeks Appreciate general surgery recommendations Follow up colonoscopy as outpatient Follow up general surgery outpatient (2) Benign prostatic hyperplasia: Continue tamsulosin and dutasteride when able to take PO - will hold for now (3) HTN (hypertension): Hold atenolol (4) Hyperlipidemia: Hold atorvastatin while NPO (5) Anxiety: Switch lorazepam frmo PO 2mg BID to IV BID with initial 1mg dose now to make sure he isn't overly sedated. Plan VTE Prophylaxis - Lovenox 40mg SQ daily Diet - NPO Disposition - admit to med/surg Total Time Total Time Spent Total Time Spent (In Minutes): 35 Discharge Plan Discharge Items Patient Disposition: Home - Self-Care Reason For Visit: ACUTE DIVERTICULITIS WITH PERFORATION Discharge Diagnosis: Acute diverticulitis Activity: As commented below Activity Comment: Light activity for 1 week Lifting: No more than 25 pounds Bathing: No limitations Sexual Activity: When tolerated Exercise Comment: Weight 1 week Driving/Machine Use: Resume 1 day after discharge Non-emergency contact: Primary Care Provider and Surgeon Call non-emergency contact if: your pain is not controlled, your temperature is above 101 and your wound has increased drainage Follow-up/Referrals: Tomas Lee MD [Primary Care Provider] - 01/29/22 10:10 am (Appointment is at [address] [place] [address], [place] [address] Maldonado.) Diet: Low Fiber Addtl Attending Provider Instructions: SPECIAL CARE INSTRUCTIONS: * May use ibuprofen for pain as tolerated. * Expect some swelling and bruising. Call your doctor if: * Temperature above 101 degrees * Pain not relieved by pain medicine ordered * There is increased drainage or redness from any incision * You have any unanswered questions or concerns [phone]. FOLLOW UP VISIT: If not already scheduled, please call the office for a follow-up visit. For 2 to 3 weeks-please call We will also help set up an appointment with [facility] for possible Future surgical care OFFICE PHONE NUMBER: Dr. Heller Office Pending Studies at Discharge: No Stand-Alone Forms: [facility] [employer] [facility], Smoking Cessation Medications and DC Order Prescriptions: New amoxicillin-pot clavulanate 875-125 mg tablet 1 tab PO BID Qty: 28 0RF Continued atorvastatin 40 mg Tablet 40 mg PO HS tamsulosin 0.4 mg Capsule 0.4 mg PO HS lorazepam 2 mg Tablet 2 mg PO BID Rx Instructions: 9am and 4pm atenolol 50 mg Tablet 75 mg PO DAILY dutasteride 0.5 mg Capsule 0.5 mg PO HS Advil Dual Action 125-250 mg Tablet 1 tab PO BID Discharge Orders: Discharge Order (Routine); Ordered 01/23/22 Ordered By: Erma Villanueva/Other Patient Handouts: Low-Fiber Diet Admission Data Admit Date/Time: 01/18/22 10:34 Attending Provider: Erma Kahn Admit Provider: Bairon Mueller Primary Care Provider: Tomas Lee Other Providers: Ray Heller ; Bairon Mueller Other Interventions: Discharge Summary Assessment (RN) Last Done: 01/23/22 11:01 Coding Level of Care Code D/C DAY MANAGEMENT >30 MINS Diagnoses Perforated diverticulitis K57.80 Benign prostatic hyperplasia N40.0 HTN (hypertension) I10 Hyperlipidemia E78.5 Anxiety F41.9 Time Spent (min) 35
== END 2022-01-23 11:30 | disposition home or self-care (01) | DRG 392 ==
LOC: ED 08:14 → SUATTDRO 10:34 → 3N 10:34

== ENCOUNTER 2024-12-30 12:31 | Inpatient (IN) ==
[2024-12-30 13:19] LABS: Hematocrit (blood only) 42.1 % (42.0-52.0); Hemoglobin 14.4 g/dl (14.0-18.0); Mean Corpuscular Hemoglobin 33.2 pg (25.0-34.0); Mean Corpuscular Hgb Conc 34.2 g/dL (32.0-36.0); Mean Platelet Volume 12.6 fL (9.4-12.4); Platelet Count 93 K/uL (130-400); RDW Coefficient of Variation 12.4 % (11.5-14.5); RDW Standard Deviation 44.5 fL (36.4-46.3); Red Blood Count 4.34 M/uL (4.70-6.10); White Blood Count 4.79 K/ul (4.8-10.8)
[2024-12-30 13:40] LABS: Albumin Globulin Ratio 1.1 (0.9-2); Albumin Level 3.7 gm/dl (3.4-5.0); BUN Creatinine Ratio 14.4 (10-20); Bilirubin,Total 1.3 mg/dl (0.2-1.0); Calcium 8.8 mg/dl (8.6-10.3); Creatinine Clr Calc Pharmacy 79.6 ml/min; Globulin 3.3 gm/dl (2.5-4.0); Magnesium 1.9 mg/dl (1.7-2.4)
[2024-12-30 13:41] LABS: Basophils # (auto) 0.01 K/uL (0.00-0.20); Basophils % (auto) 0.2 %; Dohle Bodies 2+; Immature Granulocytes # (auto) 0.04 K/uL (0.01-0.20); Immature Granulocytes % (auto) 0.8 %; Lymphocytes % (auto) 6.3 %; Monocytes # (auto) 0.21 K/uL (0.11-0.59); Monocytes % (auto) 4.4 %; Neutrophils # (auto) 4.23 K/uL (1.40-6.50); Neutrophils % (auto) 88.3 %; Toxic Granulation 2+
--- NOTE | 2024-12-30 13:45 | XRay Report ---
XR chest 1V not portable CLINICAL HISTORY: Sepsis COMPARISON STUDY: 12/29/2024 FINDINGS: Heart size and pulmonary vasculature are normal. No effusion, consolidation, or pneumothora x. IMPRESSION: No acute findings. ACT 112: Negative or not required by law. Electronically signed by: Gary Burdick M.D. 12/30/2024 1:44 PM
[2024-12-30] MEDS: cefTRIAXone SODIUM 2,000 MG/50 ML BAG IV STA (14:31)
--- NOTE | 2024-12-30 15:18 | Emergency Department Note ---
Impression & Plan Acute UTI, Fever, Bacteremia, Elevated procalcitonin ED Provider Note HISTORY OF PRESENT ILLNESS: Patient is a 69-year-old male presenting with positive blood cultures. Patient was seen in the emergency department yesterday after having a fever for the last now 3 days. He was diagnosed with a UTI but blood cultures were obtained. He was called today secondary to positive blood cultures. Patient reports he is feeling very nauseous and feeling very rundown. He states that he did have a fever last night up to 103. He last took an antipyretic at 6 AM. He denies any abdominal pain. Denies any chest pain or shortness of breath. He denies any recent sick contact exposures. He has a history of bladder cancer and has a chronic Potts catheter in place secondary to BPH and the bladder cancer. He scheduled for mass removal in [place] in a few weeks. Patient denies any recent antibiotic use other than what he was started on last night. ROS: as above PHYSICAL EXAM: Constitutional: Patient appears in no acute distress. HENT: Head: Normocephalic and atraumatic. Eyes: EOMI, PERRL Mouth/Throat: Mucous membranes moist. Neck: Trachea midline. Neck supple. Cardiovascular: RRR, No murmurs, rubs or gallops. Intact distal pulses. Pulmonary/Chest: No respiratory distress. Breath sounds clear and equal bilaterally. No wheezes or rales. Abdominal: Abdomen soft, no tenderness, rebound or guarding. Musculoskeletal: No edema, tenderness or deformity noted. Skin: Warm and dry. No rash, erythema, pallor or cyanosis Psychiatric: Appropriate mood and affect for situation. Neurological: Alert and keenly responsive. CN II-XII grossly intact, moving all extremities equally and fully. MDM: - Vitals signs stable - History obtained via patient. History as above. - Chronic conditions affecting care: HTN; HLD; BPH; bladder cancer - Differential diagnoses include, but are not limited to: sepsis; UTI; pneumonia; viral syndrome; electrolyte abnormality - Order placed for continuous cardiac monitoring. At this time, monitor showed rate of 62 bpm with normal sinus rhythm, per my interpretation. - External medical records reviewed. Blood cultures obtained on 12/29/2024 were reviewed. Patient grew gram-negative bacilli which resulted as E. coli on speciation. - Laboratory workup interpreted by myself showed normal WBC; normal INR; normal lactate; elevated procalcitonin (1.49); normal troponin - CXR image reviewed by myself today for pneumonia, per my interpretation. - Blood cultures obtained - Patient given 4 mg IV zofran for nausea. Given 2 g IV Rocephin empirically for antibiotic therapy. - Discussion was had with correctional counselor/case manager about patient's case and need for admission - Hospitalist consulted for admission - [facility] ASSESSMENT AND PLAN: Diagnosis: Bacteremia; acute UTI; elevated procalcitonin; fever Plan: admit Past Med/Surg History Problem List (Updated 12/30/24 @ 16:15 by Tegan Leung MD) Elevated procalcitonin (Acute) Bacteremia (Acute) Potts catheter in place (Acute) Elevated liver enzymes (Acute) Fever (Acute) Acute UTI (Acute) Medical History Anxiety Hyperlipidemia Perforated diverticulitis Benign prostatic hyperplasia HTN (hypertension) Surgical History History of bowel resection H/O shoulder surgery Social History Smoking Status: Never smoker Tobacco Type: Cigarettes Second Hand Exposure: No; Hx Alcohol Use: No Hx Substance Use: No Preferred Language: Telugu Communication Ability: Effective 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 Beliefs That Will Affect Care: None marital status: Current Living Situation: Spouse current occupational status: retired Feels Safe at Home: Yes Assistive Devices: None Allergies Allergies Allergy/AdvReac Type Severity Reaction Status Date / Time No Known Allergies Allergy Unverified 12/30/24 15:59 Home Meds Home Medications Medication Instructions Recorded Confirmed atenolol 50 mg tablet 50 mg PO [facility] 01/18/22 12/30/24 atorvastatin 40 mg tablet 40 mg PO [facility] 01/18/22 12/30/24 acetaminophen 325 mg tablet 650 mg PO [facility] 12/30/24 12/30/24 acetaminophen 500 mg tablet 500 mg PO [facility] 12/30/24 12/30/24 folic acid 800 mcg tablet 0.8 mg PO [facility] 12/30/24 12/30/24 lorazepam 1 mg tablet 1 mg PO [facility] 12/30/24 12/30/24 Previous Rx's Medication Instructions Recorded ciprofloxacin HCl 500 mg tablet 500 mg PO BID 14 days #28 tabs 12/29/24 (Cipro) Results & Data (ED) Vital Signs Vital Signs - 24 hr 12/30/24 12:36 12/30/24 14:27 12/30/24 14:30 Temperature 37.2 C Temperature Source Oral Pulse Rate 71 70 61 Pulse Rate from SpO2 Sensor 67 Respiratory Rate 20 22 18 Respiratory Effort / Characteristics Non-Labored Spontaneous Respiratory Depth Normal Respiratory Pattern Regular Blood Pressure 130/88 120/80 128/80 Blood Pressure Mean 102 93 86 Pulse Oximetry 95 95 94 Oxygen Delivery Method Room Air Sepsis Recent Fever Within 48 Hours Yes Sepsis New/Unexplained Change in Mental Status No Sepsis Action Taken by Nursing No Action Required 12/30/24 14:36 Temperature Temperature Source Pulse Rate 62 Pulse Rate from SpO2 Sensor Respiratory Rate Respiratory Effort / Characteristics Respiratory Depth Respiratory Pattern Blood Pressure Blood Pressure Mean Pulse Oximetry Oxygen Delivery Method Sepsis Recent Fever Within 48 Hours Sepsis New/Unexplained Change in Mental Status Sepsis Action Taken by Nursing Laboratory Data 12/30/24 12:40 12/30/24 12:40 Lab Results 12/30/24 12/30/24 12/30/24 Range/Units 12:40 13:37 14:11 WBC 4.79 L (4.8-10.8) K/ul RBC 4.34 L (4.70-6.10) M/uL Hgb 14.4 (14.0-18.0) g/dl Hct 42.1 (42.0-52.0) % MCV 97.0 (80.0-100.0) fL MCH 33.2 (25.0-34.0) pg MCHC 34.2 (32.0-36.0) g/dL RDW Std Deviation 44.5 (36.4-46.3) fL RDW Coeff of Gonzalo 12.4 (11.5-14.5) % Plt Count 93 L (130-400) K/uL MPV 12.6 H (9.4-12.4) fL Immature Gran % (Auto) 0.8 % Neut % (Auto) 88.3 % Lymph % (Auto) 6.3 % Perkins % (Auto) 4.4 % Eos % (Auto) 0.0 % Baso % (Auto) 0.2 % Neut # (Auto) 4.23 (1.40-6.50) K/uL Lymph # (Auto) 0.30 L (1.20-3.40) K/uL Perkins # (Auto) 0.21 (0.11-0.59) K/uL Eos # (Auto) 0.00 (0.00-0.50) K/uL Baso # (Auto) 0.01 (0.00-0.20) K/uL Immature Gran # (Auto) 0.04 (0.01-0.20) K/uL Toxic Granulation 2+ Dohle Bodies 2+ PT Cancelled 11.1 INR Cancelled 1.0 APTT Cancelled 33 H PTT Ratio Cancelled 1.2 Sodium 136 (136-145) mmol/L Potassium 4.0 (3.5-5.1) mmol/L Chloride 103 (98-107) mmol/L Carbon Dioxide 24 (21-32) mmol/L Anion Gap 9 (3-11) BUN 13 (6-23) mg/dl Creatinine 0.90 (0.6-1.4) mg/dl Est Cr Clr Drug Dosing 79.6 ml/min eGFR 93.61 BUN/Creatinine Ratio 14.4 (10-20) Glucose 138 H (70-99(Fasting)) mg/dl Lactate 1.3 (0.4-2.0) mmol/L Calcium 8.8 (8.6-10.3) mg/dl Magnesium 1.9 (1.7-2.4) mg/dl Total Bilirubin 1.3 H (0.2-1.0) mg/dl AST 36 (13-39) U/L ALT 26 (7-52) U/L Alkaline Phosphatase 65 (34-104) U/L Troponin I High Sens 12.0 D (0-20) pg/ml Total Protein 7.0 (6.0-8.3) gm/dl Albumin 3.7 (3.4-5.0) gm/dl Globulin 3.3 (2.5-4.0) gm/dl Albumin/Globulin Ratio 1.1 (0.9-2) Procalcitonin Cancelled 1.49 H Administered Medications Discontinued Medications Ceftriaxone Sodium (Rocephin) 2,000 mg in 50 mls @ 100 mls/hr IV NOW STA Stop: 12/30/24 14:10 Last Infusion: 12/30/24 15:06 Dose: Infused Documented By: Admin: 12/30/24 14:31 Dose: 100 mls/hr Documented By: CEF Ondansetron HCl (Ondansetron Inj 2 Mg/Ml 2 Ml Vial) 4 mg IV NOW STA Stop: 12/30/24 15:15 Last Admin: 12/30/24 15:20 Dose: 4 mg Documented By: CEF Imaging Data Radiologist's Impression: Chest X-Ray 12/30/24 12:39 XR chest 1V not portable CLINICAL HISTORY: Sepsis COMPARISON STUDY: 12/29/2024 FINDINGS: Heart size and pulmonary vasculature are normal. No effusion, consolidation, or pneumothorax. IMPRESSION: No acute findings. ACT 112: Negative or not required by law. Electronically signed by: Gary Burdick M.D. 12/30/2024 1:44 PM Discharge Plan Visit Data Chief Complaint: Referred by Doctor Stated Complaint: CHECKING IN TO BE ADMITTED ED Provider: Tegan Leung Discharge Problem: Acute UTI, Fever, Bacteremia, Elevated procalcitonin Condition: Serious Forms Stand Alone Forms: Replaced By [facility] Prescriptions Prescriptions: No Action atorvastatin 40 mg Tablet 40 mg PO QAM atenolol 50 mg Tablet 50 mg PO QAM ciprofloxacin HCl [Cipro] 500 mg tablet 500 mg PO BID 14 Days Qty: 28 0RF lorazepam 1 mg tablet 1 mg PO [facility] acetaminophen 325 mg Tablet 650 mg PO [facility] acetaminophen 500 mg Tablet 500 mg PO [facility] folic acid 800 mcg Tablet 0.8 mg PO QAM Referrals Referrals: Smita Tyler DO [Primary Care Provider] -
[2024-12-30] MEDS: ONDANSETRON INJ 2 MG/ML 2 ML VIAL IV STA (15:20)
[2024-12-30 15:55] LABS: Partial Thromboplastin Ratio 1.2; Partial Thromboplastin Time 33 Seconds (21-31); Prothrombin Time 11.1 Seconds (9.0-12.0)
--- NOTE | 2024-12-30 16:16 | History & Physical Report ---
Date of Service December 30, 2024 Assessment & Plan (1) Bacteremia: (2) Catheter-associated urinary tract infection: (3) Rodriguez catheter in place: (4) E. coli UTI: (5) Leukopenia: (6) Thrombocytopenia: (7) Benign prostatic hyperplasia: (8) History of hemicolectomy: (9) Prostate cancer: (10) Anxiety: Plan Pleasant 69yo male with recently diagnosed prostate cancer at [facility] in November 2024, BPH, and chronic rodriguez catheter usage for about 4 months - last rodriguez exchange was FridayDecember 24 at [facility]. On Friday of this week began with fevers, chills, fatigue, weakness, poor appetite, and dark-appearing urine. Due to persistent symptoms he came to [facility] ER on 12/29, had u/a suggestive of UTI, urine & blood cx's were dispatched, and he received IV cefepime during that ER visit. Sent home on PO cipro - took 1 dose last night, and a 2nd dose this morning. His blood cultures from 12/29/24 turned positive for gram negative rods early this morning and our ER called the patient asking him to come to the ER for admission. Urine cx from 12/29/24 is growing e.coli, and BioFire showed that the gram negative reyes in the blood is also e.coli. No resistance genes were seen on BioFire testing. #e.coli bacteremia / sepsis - -source - urinary tract in the setting of chronic rodriguez usage -repeat blood cx's sent from the ER today for test of cure and source control -received IV cefepime yesterday, then d/c home on PO cipro -per BioFire testing no resistance detected -pharmacy advising rocephin 2gm IV daily until final cultures have returned; first dose given in ER -should have 12/29 urine cx final results tomorrow, +/- blood culture final results tomorrow (or Friday) -low platelets, low wbc count - suspect due to bacteremia; repeat CBC in am -fortunately his BPs are stable and lactate is negative with stable creatinine -patient just had PET/CT on 12/20/24 at [facility] -I received a copy of that report and there were no suspicious urinary tract findings except for bladder wall thickening -will defer on repeat imaging of the abd/pelvis unless there is persistence of fever, clinical worsening, etc. #catheter-associated UTI - -last rodriguez exchange 12/24/24 in [facility] -in light of active infection would exchange his rodriguez while here -UTI is 2nd to e.coli - see above under "bacteremia" #leukopenia, thrombocytopenia - -suspect due to sepsis/bacteremia -doubt tick-borne infection or other viral process -trend the CBC -if counts worsen then broaden the differential by checking anaplasmosis, viral studies, etc #Hypertension - -cont atenolol but lower the dose to 25mg/day from 50mg/day #Hyperlipidemia - -cont statin #dehydration - -NS at 100cc/hr at least for 1-2 liters -BMP am -diet as tolerated #anxiety - -cont ativan 1mg BID; this is chronic med for him per the PDMP #hyperglycemia - -at minimum is due to stress of illness but check Hba1c in am to r/o pre-DM or DM #mildly elevated PTT - -start with simply repeating in am -if it remains high consider "mixing study" to r/o an inhibitor -platelets are low, but INR is stable - doubt DIC -repeat CBC am #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 - -following with [facility] -[place] [facility] [place]see HPI for details of recent PET-CT #DVT Proph - -as platelets are low and PTT mildly high defer on chemical DVT proph at this t zion -repeat CBC and PTT tomorrow -if platelets/PTT are stable then could consider chemical DVT proph then extensively updated at bedside during the visit natural course of bacteremia and expected recovery time discussed in detail History of Present Illness Chief Complaint: +blood cultures, fevers/chills/fatigue/weakness Primary Care Provider: DO Norma Badillo 69yo male with recently diagnosed prostate cancer at [facility] in November 2024, BPH, and chronic rodriguez catheter usage for about 4 months - last rodriguez exchange was FridayDecember 24 at [facility]. On Friday of this week began with fevers, chills, fatigue, weakness, poor appetite, and dark-appearing urine. Due to persistent symptoms he came to [facility] ER on 12/29, had u/a suggestive of UTI, urine & blood cx's were dispatched, and he received IV cefepime during that ER visit. Sent home on PO cipro - took 1 dose last night, and a 2nd dose this morning. Had temp to 103 this morning. His blood cultures turned positive for gram negative rods early this morning and our ER called the patient asking him to come to the ER for admission. Urine cx from 12/29/24 is growing e.coli, and BioFire showed that the gram negative reyes in the blood is also e.coli. No resistance genes were seen on BioFire testing. Patient states he had a PET/CT on 12/20/24 at [facility]. I was able to secure the report from this scan - -no hydronephrosis was seen b/l -bladder wall thickening and multiple bladder diverticuli were seen -left renal cysts seen -no kidney stones -diverticulosis was seen but no diverticulitis -left 2nd rib sclerotic lesion seen concerning for metastatic disease -subcentimeter paraortic nodes - equivocal -uptake within the prostate is consistent with prostate ca He is scheduled to have prostatectomy for his BPH/Prostate cancer on 02/11/25 at [facility]. Follows with Dr Tyrese Miller at [facility]. Allergies Allergy/AdvReac Type Severity Reaction Status Date / Time No Known Allergies Allergy Unverified 12/30/24 15:59 Home Medications Medication Instructions Recorded Confirmed Type atenolol 50 mg tablet 50 mg PO QAM 01/18/22 12/30/24 History atorvastatin 40 mg tablet 40 mg PO QAM 01/18/22 12/30/24 History ciprofloxacin HCl 500 mg tablet 500 mg PO BID 14 days #28 tabs 12/29/24 12/30/24 Rx (Cipro) acetaminophen 325 mg tablet 650 mg PO AMHS 12/30/24 12/30/24 History acetaminophen 500 mg tablet 500 mg PO AMHS 12/30/24 12/30/24 History folic acid 800 mcg tablet 0.8 mg PO QAM 12/30/24 12/30/24 History lorazepam 1 mg tablet 1 mg PO AMHS 12/30/24 12/30/24 History Past Med/Surg History Problem List (Updated 12/31/24 @ 05:03 by Bairon Bird MD) Thrombocytopenia Leukopenia Catheter-associated urinary tract infection E. coli UTI Elevated procalcitonin (Acute) Bacteremia (Acute) Rodriguez catheter in place (Acute) Elevated liver enzymes (Acute) Fever (Acute) Acute UTI (Acute) Medical History (Updated 12/31/24 @ 05:03 by Bairon Bird MD) History of upper gastrointestinal bleeding due to PUD; 2022; hospitalized [facility] History of peptic ulcer disease Prostate cancer Anxiety Hyperlipidemia Perforated diverticulitis Benign prostatic hyperplasia HTN (hypertension) Surgical History (Updated 12/31/24 @ 05:03 by Bairon Bird MD) H/O wisdom tooth extraction H/O inguinal hernia repair History of hemicolectomy H/O shoulder surgery Family History (Updated 12/31/24 @ 05:02 by Bairon Bird MD) Father , age 87; had had CABG Prostate cancer Coronary heart disease Mother , from sepsis age 66 Diabetes Social History (Updated 12/31/24 @ 05:05 by Bairon Bird MD) Smoking Status: Never smoker Tobacco Type: Cigarettes Second Hand Exposure: No; Hx Alcohol Use: No Hx Substance Use: No Preferred Language: Georgian Communication Ability: Effective Php Website Developer Required: No Beliefs That Will Affect Care: None marital status: Current Living Situation: Spouse current occupational status: retired 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; 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 [employer] Feels Safe at Home: Yes Assistive Devices: None Review of Systems Review of Systems: gen - fevers/chills/fatigue/weakness/poor appetite since early this week (Friday) eyes - no change in vision HENT - no sore throat, no URI symptoms CV - no chest pain pulm - no dyspnea, slight cough for a few days GI - no abdominal pain or N/V; no blood in stool - no flank pain; rodriguez in place; no hematuria but urine has been dark/cloudy musculo - minimal back pain earlier this week skin - no rash endo - no diabetes neuro - slight headache this week, no focal motor deficits Physical Exam Physical Exam: gen - looks ill/tired but nontoxic; awake/alert; pleasant eyes - PERRL HENT - MM dry, no lesions neck - no JVD, no lymph nodes, no goiter heart - RRR, s1 s2, no murmur lungs - CTA b/l, no rales abd - soft, NT, ND, BS+, no HSM, no flank tenderness to palpation - rodriguez in place, dark-appearing urine present ext - no edema, pulses 2+ b/l feet neuro - strength 5/5 x 4 exts skin - no rash psych - a/o x 3 Results & Data Results & Data Vital Signs (Past 12 Hours) Vital Signs Temp Pulse Resp BP Pulse Ox O2 Del Method 12/30/24 14:36 62 12/30/24 14:30 61 18 128/80 94 12/30/24 14:27 70 22 120/80 95 12/30/24 12:36 37.2 C 71 20 130/88 95 Room Air Laboratory Results Laboratory Results - last 24 hr 12/30/24 12/30/24 12/30/24 12:40 13:37 14:11 WBC 4.79 L RBC 4.34 L Hgb 14.4 Hct 42.1 MCV 97.0 MCH 33.2 MCHC 34.2 RDW Std Deviation 44.5 RDW Coeff of Gonzalo 12.4 Plt Count 93 L MPV 12.6 H Immature Gran % (Auto) 0.8 Neut % (Auto) 88.3 Lymph % (Auto) 6.3 Calvert % (Auto) 4.4 Eos % (Auto) 0.0 Baso % (Auto) 0.2 Neut # (Auto) 4.23 Lymph # (Auto) 0.30 L Calvert # (Auto) 0.21 Eos # (Auto) 0.00 Baso # (Auto) 0.01 Immature Gran # (Auto) 0.04 Toxic Granulation 2+ Dohle Bodies 2+ PT Cancelled 11.1 INR Cancelled 1.0 APTT Cancelled 33 H PTT Ratio Cancelled 1.2 Sodium 136 Potassium 4.0 Chloride 103 Carbon Dioxide 24 Anion Gap 9 BUN 13 Creatinine 0.90 Est Cr Clr Drug Dosing 79.6 eGFR 93.61 BUN/Creatinine Ratio 14.4 Glucose 138 H Lactate 1.3 Calcium 8.8 Magnesium 1.9 Total Bilirubin 1.3 H AST 36 ALT 26 Alkaline Phosphatase 65 Troponin I High Sens 12.0 D Total Protein 7.0 Albumin 3.7 Globulin 3.3 Albumin/Globulin Ratio 1.1 Procalcitonin Cancelled 1.49 H Chest X-Ray 12/30/24 12:39 XR chest 1V not portable CLINICAL HISTORY: Sepsis COMPARISON STUDY: 12/29/2024 FINDINGS: Heart size and pulmonary vasculature are normal. No effusion, consolidation, or pneumothorax. IMPRESSION: No acute findings. ACT 112: Negative or not required by law. Electronically signed by: Gary Burdick M.D. 12/30/2024 1:44 PM EKG - my reading -- NSR, PVC, no ST changes Diagnostic Findings 12/29 urine cx - e.coli, sensitivities pending 12/29 blood cx's - 4 out of 4 bottles + for GNR; Biofire shows GNR is e.coli -- no resistance genes present 12/30/24 14:10 Aerobic Blood Culture - Pending Blood Anaerobic Blood Culture - Pending 12/30/24 14:11 Aerobic Blood Culture - Pending Blood Anaerobic Blood Culture - Pending Code Status & VTE Plan Code Status full code PG Care Time/CCT Total # of Minutes Spent Total Time Spent with Patient: Total time spent is greater than 50% in coordination of care (as documented) at patient's floor/unit and/or counseling patient: Coding Level of Care Code 20583 INT INP/OBS CARE 3/75MIN Diagnoses Bacteremia R78.81 Catheter-associated urinary tract infection T83.511A; N39.[address] Z97.8 E. coli UTI N39.0; B96.20 Leukopenia D72.819 Thrombocytopenia D69.6 Benign prostatic hyperplasia N40.0 History of hemicolectomy Z90.49 Prostate cancer C61 Anxiety F41.9
[2024-12-30 17:46] LABS: Amorphous Sediment Urine Present (None Prsent); Appearance Urine Turbid (Clear); Bacteria Urine Automated 1+ (None Seen); Bilirubin Urine Negative (Negative); Blood Urine 3+ (Negative); Cast Urine Automated >20 /lpf (0-2); Color Urine Yellow; Glucose Urine UA Negative (Negative); Hyaline Casts Urine Present /lpf (None Presnt); Ketones Urine Trace (Negative); Leukocyte Esterase Urine 3+ (Negative); Mucus Urine Present (None Prsent); Nitrite Urine Negative (Negative); Protein Urine 2+ (Negative); Specific Gravity Urine 1.022 (1.000-1.030); Urobilinogen Urine Negative (Negative); WBC Urine Automated >50 /hpf (0-5)
[2024-12-30] MEDS: SODIUM CHLORIDE 0.9% 1,000 ML IV SCH (17:52)
[2024-12-30] MEDS: LORazepam 1 MG TAB PO SCH (20:09)
[2024-12-30] MEDS: FAMOTIDINE 20 MG TAB PO SCH (20:09)
[2024-12-30] MEDS: ACETAMINOPHEN 325 MG TAB PO PRN (20:09)
[2024-12-31 06:03] LABS: Hematocrit (blood only) 34.1 % (42.0-52.0); Hemoglobin 11.4 g/dl (14.0-18.0); Mean Corpuscular Hemoglobin 32.3 pg (25.0-34.0); Mean Corpuscular Hgb Conc 33.4 g/dL (32.0-36.0); Mean Corpuscular Volume 96.6 fL (80.0-100.0); Platelet Count 90 K/uL (130-400); RDW Coefficient of Variation 12.3 % (11.5-14.5); RDW Standard Deviation 43.4 fL (36.4-46.3); Red Blood Count 3.53 M/uL (4.70-6.10); White Blood Count 3.74 K/ul (4.8-10.8)
[2024-12-31 06:13] LABS: BUN Creatinine Ratio 34.3 (10-20); Calcium 7.6 mg/dl (8.6-10.3); Potassium 3.8 mmol/L (3.5-5.1)
[2024-12-31 06:35] LABS: Basophils # (auto) 0.01 K/uL (0.00-0.20); Basophils % (auto) 0.3 %; Dohle Bodies 1+; Eosinophils # (auto) 0.01 K/uL (0.00-0.50); Eosinophils % (auto) 0.3 %; Immature Granulocytes # (auto) 0.02 K/uL (0.01-0.20); Immature Granulocytes % (auto) 0.5 %; Lymphocytes # (auto) 0.52 K/uL (1.20-3.40); Lymphocytes % (auto) 13.9 %; Monocytes # (auto) 0.28 K/uL (0.11-0.59); Monocytes % (auto) 7.5 %; Neutrophils % (auto) 77.5 %; Toxic Granulation 1+
[2024-12-31 06:36] LABS: Partial Thromboplastin Ratio 1.2; Partial Thromboplastin Time 32 Seconds (21-31)
[2024-12-31 07:31] LABS: Estimated Average Glucose 123 mg/dl; Hemoglobin A1C 5.9 % (4.5-5.6)
[2024-12-31] MEDS: FOLIC ACID 400 MCG TAB PO SCH (07:52)
[2024-12-31] MEDS: ATORVASTATIN 40 MG TAB PO SCH (07:53)
[2024-12-31] MEDS: ATENOLOL 25 MG TABLET PO SCH (07:53)
--- NOTE | 2024-12-31 11:43 | Hospitalist Progress Note ---
Date of Service December 31, 2024 Assessment & Plan (1) Bacteremia: (2) Catheter-associated urinary tract infection: (3) Rodriguez catheter in place: (4) E. coli UTI: (5) Leukopenia: (6) Thrombocytopenia: (7) Benign prostatic hyperplasia: (8) History of hemicolectomy: (9) Prostate cancer: (10) Anxiety: Plan This is a 69yo male with recently diagnosed prostate cancer at [facility] in November 2024, BPH, and chronic rodriguez catheter usage for about 4 months, who presents on account of positive blood culture result. On Friday of this week began with fevers, chills, fatigue, weakness, poor appetite, and dark-appearing urine. Due to persistent symptoms he came to [facility] ER on 12/29, had u/a suggestive of UTI, urine & blood cx's were dispatched, and he received IV cefepime during that ER visit. Sent home on PO cipro - took 1 dose last night, and a 2nd dose this morning. His blood cultures from 12/29/24 turned positive for gram negative rods early this morning and our ER called the patient asking him to come to the ER for admission. Urine cx from 12/29/24 is growing e.coli, and BioFire showed that the gram negative reyes in the blood is also e.coli. No resistance genes were seen on BioFire testing. #e.coli bacteremia / sepsis - -source - urinary tract in the setting of chronic rodriguez usage -repeat blood cx's sent from the ER for test of cure and source control -received on e dose of IV cefepime and one dose PO cipro -per BioFire testing no resistance detected -Will continue IV Rocephin 2gm daily until final blood cultures have returned #catheter-associated UTI - -last rodriguez exchange 12/30/24 in the ER -Continue IV ceftriaxone for now #leukopenia, thrombocytopenia - -suspect due to sepsis/bacteremia -Continue to monitor #Hypertension - -cont atenolol but lower the dose to 25mg/day from 50mg/day #Hyperlipidemia - -cont statin #dehydration - -NS at 100cc/hr at least for 1-2 liters -BMP am -diet as tolerated #anxiety - -cont ativan 1mg BID; this is chronic med for him per the PDMP #hyperglycemia - -Now under better conytrol #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 Physical Exam Physical Exam: The patient is awake, alert and oriented 3, well developed and well nourished, normocephalic and atraumatic, lying in bed and in no acute distress. HEENT--PERRL, EOMI, mucous membranes and oropharynx mildly dry Neck--supple. No JVD. No bruits. Thyroid normal, trachea midline, no adenopathy. Heart--normal S1 and S2. No murmurs, rubs or gallops. Lungs--clear bilaterally, no respiratory distress, no accessory muscle use. Abdomen--normal bowel sounds and soft. Extremities--no cyanosis or clubbing. No edema. Dermatologic--normal skin turgor, normal color, no abnormal lymph nodes, no rash. Neurologic--cranial nerves II through XII grossly intact. Rheumatologic--normal range of motion. Psychiatric--normal affect. Results & Data Results & Data Vital Signs (Past 12 Hours) Vital Signs Temp Pulse Pulse Resp BP Pulse Ox O2 Del Method 12/31/24 09:00 63 12/31/24 07:56 97.9 F 66 16 116/78 95 Room Air 12/31/24 03:35 100.0 F H 71 18 113/74 91 Room Air 12/31/24 00:10 101.1 F H 89 18 117/72 91 Room Air PG Care Time/CCT Total # of Minutes Spent Total Time Spent with Patient: Total time spent is greater than 50% in coordination of care (as documented) at patient's floor/unit and/or counseling patient: Coding Level of Care Code 85292 SUB INP/OBS CARE 2/35MIN Diagnoses Bacteremia R78.81 Catheter-associated urinary tract infection T83.511A; N39.[address] Z97.8 E. coli UTI N39.0; B96.20 Leukopenia D72.819 Thrombocytopenia D69.6 Benign prostatic hyperplasia N40.0 History of hemicolectomy Z90.49 Prostate cancer C61 Anxiety F41.9 Time Spent (min) 35
--- NOTE | 2024-12-31 12:36 | Cardiology Consultation ---
Date of Consultation December 31, 2024 Assessment & Plan (1) Vasovagal episode: -Known history of vasovagal events related to esophageal spasm. -No further cardiac evaluation necessary at this time. (2) Hyperlipidemia: -Continue atorvastatin. (3) HTN (hypertension): -Adequate control on current regimen. History of Present Illness Attending Physician: Erma Kahn MD History of Present Illness Mr. Pro is a 69-year-old male admitted yesterday with E. coli sepsis from a urinary source. He demonstrated a 7-second pause on telemetry today, and therefore, this consultation was ordered. The patient was in his usual state of health until December 29 when he presented to our institution with fever and urinary complaints. He was given a dose of intravenous followed by oral antibiotics and discharged home. However, the following day, his urine culture and blood cultures both grew out E. coli. He was contacted by the emergency room staff and told to return for hospital admission. This morning, at approximately 9:20 AM, the patient was drinking ice cold water and experienced a typical episode of his esophageal spasm. This corresponded with the 7-second pause on telemetry. The patient has a longstanding history of esophageal dysmotility and vasovagal syncope and presyncope. He knows to avoid dry foods such as white chicken meat and also ice cold water. Currently, patient is resting comfortably in bed without complaints. Past medical and surgical history 1. Hypertension 2. Hypercholesterolemia 3. Vasovagal syncope 4. Esophageal dysmotility 5. Peptic ulcer disease 6. Hyperglycemia 7. BPH 8. Prostate carcinoma 9. Prostatectomyplanned for 02/2025 10. Perforated diverticulumJanuary 2013 11. Inguinal hernia repair 12. Hemicolectomy Social history and lives with his Retired from [employer] No tobacco or alcohol Family history Father at 87 from prostate carcinoma. He did have coronary artery disease Mother at 66 from sepsis Review of systems A 10 point review of system was undertaken and negative except that described above. Allergies Allergy/AdvReac Type Severity Reaction Status Date / Time No Known Allergies Allergy Unverified 12/30/24 15:59 Home Medications Medication Instructions Recorded Confirmed Type atenolol 50 mg tablet 50 mg PO QAM 01/18/22 12/30/24 History atorvastatin 40 mg tablet 40 mg PO QAM 01/18/22 12/30/24 History ciprofloxacin HCl 500 mg tablet 500 mg PO BID 14 days #28 tabs 12/29/24 12/30/24 Rx (Cipro) acetaminophen 325 mg tablet 650 mg PO AMHS 12/30/24 12/30/24 History acetaminophen 500 mg tablet 500 mg PO AMHS 12/30/24 12/30/24 History folic acid 800 mcg tablet 0.8 mg PO QAM 12/30/24 12/30/24 History lorazepam 1 mg tablet 1 mg PO AMHS 12/30/24 12/30/24 History Patient History Medical History (Updated 12/31/24 @ 12:34 by Tomas Gonzáles MD) History of upper gastrointestinal bleeding due to PUD; 2022; hospitalized [facility] History of peptic ulcer disease Prostate cancer Anxiety Perforated diverticulitis Benign prostatic hyperplasia Surgical History (Updated 12/31/24 @ 05:03 by Bairon Bird MD) H/O wisdom tooth extraction H/O inguinal hernia repair History of hemicolectomy H/O shoulder surgery Family History (Updated 12/31/24 @ 05:02 by Bairon Bird MD) Father , age 87; had had CABG Prostate cancer Coronary heart disease Mother , from sepsis age 66 Diabetes Social History (Updated 12/31/24 @ 05:05 by Bairon Bird MD) Smoking Status: Never smoker Tobacco Type: Cigarettes Second Hand Exposure: No; Hx Alcohol Use: No Hx Substance Use: No Preferred Language: Kazakh Communication Ability: Effective Stencil Machine Operator Required: No Beliefs That Will Affect Care: None marital status: Current Living Situation: Spouse current occupational status: retired 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 HEENT exam is negative. Neck reveals normal carotid upstrokes without bruits. Jugular venous pressure is flat at 90. There is no thyromegaly. Cardiovascular exam reveals a regular rhythm with a normal S1 and S2. No S3, S4, or murmurs are noted. Lungs are clear without rales, rhonchi, or wheezes. Abdomen is soft without bruits. Extremities reveal intact radial artery and posterior tibial pulses bilaterally. There is no peripheral edema. Results & Data Vital Signs (Past 12 Hours) Vital Signs Temp Pulse Pulse Resp BP Pulse Ox O2 Del Method 12/31/24 09:00 63 12/31/24 07:56 36.6 C 66 16 116/78 95 Room Air 12/31/24 03:35 37.8 C H 71 18 113/74 91 Room Air Laboratory Results CBC with hemoglobin of 11.4. Electrolytes are unremarkable. Diagnostic Findings Telemetry monitoring noted a 7-second pause without electrical activity. PG Care Time/CCT Total # of Minutes Spent Total Time Spent with Patient: Total time spent is greater than 50% in coordination of care (as documented) at patient's floor/unit and/or counseling patient: Coding Level of Care Code 37903 INT INP/OBS CARE 375MIN Diagnoses Vasovagal episode R55 Hyperlipidemia E78.5 HTN (hypertension) I10
--- NOTE | 2024-12-31 13:22 | Electrocardiogram Report ---
Test Reason : Blood Pressure : */* mmHG Vent. Rate : 76 BPM Atrial Rate : 76 BPM P-R Int : 164 ms QRS Dur : 98 ms QT Int : 396 ms P-R-T Axes : 59 27 47 degrees QTcB Int : 445 ms Sinus rhythm with occasional Premature ventricular complexes Possible Left atrial enlargement Borderline ECG When compared with ECG of 29-Dec-2024 14:38, (unconfirmed) No significant change was found Confirmed by Tomas Gonzáles ([id number]) on 12/31/2024 1:21:57 PM Referred By: Confirmed By: Tomas Gonzáles
[2024-12-31] MEDS: cefTRIAXone SODIUM 2,000 MG/50 ML BAG IV SCH (14:11)
--- NOTE | 2024-12-31 14:37 | Gastrointestinal Consultation ---
Date of Consultation December 31, 2024 Assessment & Plan (1) Bacteremia: 69 year old male with recently diagnosed prostate cancer, BPH, chronic rodriguez catheter following with [facility], diverticulosis, recurrent diverticulitis with perforation s/p hemicolectomy at [facility] in 2021, duodenal ulcer with a visible vessel in the setting of NSAIDs use treated at [facility] in 2022 who is admitted w/ urosepsis, e.coli bacteremia. GI was asked to evaluate for a GI bleed. While his HGB decreased overnight, this may be multifactorial/dilutional as he has heme-positive but brown stools. He denies any black/bloody stools/emesis. As he is not NPO (ate breakfast/lunch) and there is no evidence of active GI bleeding, will defer endoscopic evaluation unless urgently indicated. Recommend to hold NSAIDs. Start Pantoprazole 40 mg twice daily for 1 month then once daily there after. Trend H&H. Monitor and document GI output. Transfuse PRN per primary service. Plan for outpatient EGD unless otherwise indicted during the course of his admission. He is due for a colonoscopy for colon cancer screening this year and notes he plans to follow up with [facility] for this. I spent a total of 60 minutes on the date of service in review of patient's record, and previously obtained information in person and appropriate medical visit, discussion and education of plan, with patient and/or caregiver, placing orders for tests/referral/procedures as medically necessary and documentation of pertinent clinical information in patient's medical records for their visit today.Thank you for allowing us to participate in the care of this patient. Please call with any acute changes, questions or concerns. Please see addendum below with additional recommendation from my supervising physician. On afternoon rounds, he now recalls a recent EGD/Colonoscopy a few months ago by Dr. Fajardo and was told to follow up with a colonoscopy in 5 years. He should arrange an OP EGD only at time of discharge w/ [facility] if not arranged while inpatient. Supervising Physician Co-Signing Physician Notes Patient came in with sepsis. Hemoglobin was 14 on admission and is now 11. However he is having brown stools though they may be heme positive this would not suggest an active gastrointestinal bleed. A drop of 3 g of hemoglobin he would expect to have melena and/or hematochezia. We will observe for evidence of that overnight. There may be a dilutional factor here. However this gentleman does have a history of a significant GI bleed from a duodenal ulcer requiring endoscopic intervention and transfusion. Patient had taken maybe 6 or 7 ibuprofen due to fevers related to the current infection. That does not appear to be a sufficient amount and timeframe to cause a recurrent duodenal ulcer. Continue PPI therapy observe for further bleeding. Endoscopy if active bleeding during current admission or as an outpatient. History of Present Illness Reason for Consultation: GI bleed Requesting Physician: Erma Kahn MD Attending Physician: Erma Kahn MD History of Present Illness 69 year old male with recently diagnosed prostate cancer, BPH, and chronic rodriguez catheter following with [facility], diverticulosis, recurrent diverticulitis with perforation s/p hemicolectomy at [facility] in 2021, duodenal ulcer with a visible vessel in the setting of NSAIDs use treated at [facility] in 2022 who is admitted w/ urosepsis, e.coli bacteremia. GI was asked to evaluate for a GI bleed. Pt was seen and evaluated, chart reviewed. He notes he is moving his bowels. Stools are brown. No report of black or bloody stools. Denies abd pain. He did have some nausea yesterday which he relates to fasting. He notes now that he is eating he feels well from a GI standpoint. No vomiting. No fever, chills, CP, SOB. HGB 14.4 --> 11.4 BUN 23 INR 1 PLT 90 Stool occult positive Had used a day or two of NSAIDs for his urinary symptoms. Otherwise has not used NSAIDs since his ulcer in 2022. EGD 2022: Normal esophagus. Normal stomach. Normal duodenal bulb and second portion of the duodenum. Retained OVESCO clip in the duodenum. EGD 2022: Phyllis-Nino tear. Treated with bipolar cautery. Normal stomach. O ozing duodenal ulcer with a visible vessel. Treated with bipolar cautery, OVESCO clip placement and Epi Injection. Excellent control of bleeding achieved at the end.Normal second portion of the duodenum. No specimens collected. Colonoscopy 2019: Nonbleeding internal hemorrhoids. Diverticulosis in the sigmoid colon. One 4 mm polyp in the ascending colon, removed with cold biopsy forceps. Resected and retrieved. Tubular adenoma. Repeat colonoscopy in 5 years Colonoscopy 2015: Diverticulosis in the sigmoid and ascending colon. One 6 mm polyp at the splenic flexure. Resected and retrieved. Allergies Allergy/AdvReac Type Severity Reaction Status Date / Time No Known Allergies Allergy Unverified 12/30/24 15:59 Home Medications Medication Instructions Recorded Confirmed Type atenolol 50 mg tablet 50 mg PO QAM 01/18/22 12/30/24 History atorvastatin 40 mg tablet 40 mg PO QAM 01/18/22 12/30/24 History ciprofloxacin HCl 500 mg tablet 500 mg PO BID 14 days #28 tabs 12/29/24 12/30/24 Rx (Cipro) acetaminophen 325 mg tablet 650 mg PO AMHS 12/30/24 12/30/24 History acetaminophen 500 mg tablet 500 mg PO AMHS 12/30/24 12/30/24 History folic acid 800 mcg tablet 0.8 mg PO QAM 12/30/24 12/30/24 History lorazepam 1 mg tablet 1 mg PO AMHS 12/30/24 12/30/24 History Patient History Medical History (Updated 12/31/24 @ 12:34 by Tomas Gonzáles MD) History of upper gastrointestinal bleeding due to PUD; 2022; hospitalized [facility] History of peptic ulcer disease Prostate cancer Anxiety Perforated diverticulitis Benign prostatic hyperplasia Surgical History (Updated 12/31/24 @ 05:03 by Bairon Bird MD) H/O wisdom tooth extraction H/O inguinal hernia repair History of hemicolectomy H/O shoulder surgery Family History (Updated 12/31/24 @ 05:02 by Bairon Bird MD) Father , age 87; had had CABG Prostate cancer Coronary heart disease Mother , from sepsis age 66 Diabetes Social History (Updated 12/31/24 @ 05:05 by Bairon Bird MD) Smoking Status: Never smoker Tobacco Type: Cigarettes Second Hand Exposure: No; Hx Alcohol Use: No Hx Substance Use: No Preferred Language: Czech Communication Ability: Effective Counselor/Art Therapist Required: No Beliefs That Will Affect Care: None marital status: Current Living Situation: Spouse current occupational status: retired 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 Physical Exam Constitutional: WD/WN, vitals as above Respiratory: normal respiratory effort Cardiovascular: Rate/Rhythm: regular rate Gastrointestinal (Abdomen): Percussion/Palpation: abdomen soft; abdomen nontender, no guarding and abdomen not rigid Skin: no rashes, warm and dry Results & Data Vital Signs (Past 12 Hours) Vital Signs Temp Pulse Pulse Resp BP Pulse Ox O2 Del Method 12/31/24 12:28 98.1 F 53 L 16 122/74 96 Room Air 12/31/24 09:00 63 12/31/24 07:56 97.9 F 66 16 116/78 95 Room Air 12/31/24 03:35 100.0 F H 71 18 113/74 91 Room Air Laboratory Results 12/31/24 12/31/24 12/30/24 Range/Units 13:15 05:29 16:55 WBC 3.74 L (4.8-10.8) K/ul RBC 3.53 L (4.70-6.10) M/uL Hgb 11.4 L D (14.0-18.0) g/dl Hct 34.1 L (42.0-52.0) % MCV 96.6 (80.0-100.0) fL MCH 32.3 (25.0-34.0) pg MCHC 33.4 (32.0-36.0) g/dL RDW Std Deviation 43.4 (36.4-46.3) fL RDW Coeff of Gonzalo 12.3 (11.5-14.5) % Plt Count 90 L (130-400) K/uL MPV 12.0 (9.4-12.4) fL Immature Gran % (Auto) 0.5 % Neut % (Auto) 77.5 % Lymph % (Auto) 13.9 % Sierra % (Auto) 7.5 % Eos % (Auto) 0.3 % Baso % (Auto) 0.3 % Neut # (Auto) 2.90 (1.40-6.50) K/uL Lymph # (Auto) 0.52 L (1.20-3.40) K/uL Sierra # (Auto) 0.28 (0.11-0.59) K/uL Eos # (Auto) 0.01 (0.00-0.50) K/uL Baso # (Auto) 0.01 (0.00-0.20) K/uL Immature Gran # (Auto) 0.02 (0.01-0.20) K/uL Toxic Granulation 1+ Dohle Bodies 1+ PT (9.0-12.0) Seconds INR (0.9-1.1) APTT 32 H (21-31) Seconds PTT Ratio 1.2 Sodium 136 (136-145) mmol/L Potassium 3.8 (3.5-5.1) mmol/L Chloride 105 (98-107) mmol/L Carbon Dioxide 25 (21-32) mmol/L Anion Gap 6 (3-11) BUN 23 (6-23) mg/dl Creatinine 0.67 (0.6-1.4) mg/dl Est Cr Clr Drug Dosing 107.0 ml/min eGFR 102.34 BUN/Creatinine Ratio 34.3 H (10-20) Glucose 118 H (70-99(Fasting)) mg/dl Estimat Average Glucose 123 mg/dl Hemoglobin A1c 5.9 H (4.5-5.6) % Lactate (0.4-2.0) mmol/L Calcium 7.6 L (8.6-10.3) mg/dl Procalcitonin (0-0.5) ng/ml Urine Color Yellow Urine Appearance Turbid A (Clear) Urine pH 5.0 (4.5-7.5) Ur Specific [place] 1.022 (1.000-1.030) Urine Protein 2+ H (Negative) Urine Glucose (UA) Negative (Negative) Urine Ketones Trace H (Negative) Urine Blood 3+ H (Negative) Urine Nitrite Negative (Negative) Urine Bilirubin Negative (Negative) Urine Urobilinogen Negative (Negative) Ur Leukocyte Esterase 3+ H (Negative) Urine WBC (Auto) >50 H (0-5) /hpf Urine RBC (Auto) 3-5 H (0-2) /hpf U Hyaline Cast (Auto) >20 H (0-2) /lpf U Epithel Cells (Auto) 6-10 H (0-2) /hpf Urine Bacteria (Auto) 1+ H (None Seen) Amorphous Sediment Present A (None Prsent) Hyaline Casts Present A (None Presnt) /lpf Urine Mucus Present A (None Prsent) Urine Comment Stool Occult Bld Scrn Positive A (Negative) 12/30/24 12/30/24 Range/Units 14:11 13:37 WBC (4.8-10.8) K/ul RBC (4.70-6.10) M/uL Hgb (14.0-18.0) g/dl Hct (42.0-52.0) % MCV (80.0-100.0) fL MCH (25.0-34.0) pg MCHC (32.0-36.0) g/dL RDW Std Deviation (36.4-46.3) fL RDW Coeff of Gonzalo (11.5-14.5) % Plt Count (130-400) K/uL MPV (9.4-12.4) fL Immature Gran % (Auto) % Neut % (Auto) % Lymph % (Auto) % Sierra % (Auto) % Eos % (Auto) % Baso % (Auto) % Neut # (Auto) (1.40-6.50) K/uL Lymph # (Auto) (1.20-3.40) K/uL Sierra # (Auto) (0.11-0.59) K/uL Eos # (Auto) (0.00-0.50) K/uL Baso # (Auto) (0.00-0.20) K/uL Immature Gran # (Auto) (0.01-0.20) K/uL Toxic Granulation Dohle Bodies PT 11.1 (9.0-12.0) Seconds INR 1.0 (0.9-1.1) APTT 33 H (21-31) Seconds PTT Ratio 1.2 Sodium (136-145) mmol/L Potassium (3.5-5.1) mmol/L Chloride (98-107) mmol/L Carbon Dioxide (21-32) mmol/L Anion Gap (3-11) BUN (6-23) mg/dl Creatinine (0.6-1.4) mg/dl Est Cr Clr Drug Dosing ml/min eGFR BUN/Creatinine Ratio (10-20) Glucose (70-99(Fasting)) mg/dl Estimat Average Glucose mg/dl Hemoglobin A1c (4.5-5.6) % Lactate 1.3 (0.4-2.0) mmol/L Calcium (8.6-10.3) mg/dl Procalcitonin 1.49 H (0-0.5) ng/ml Urine Color Urine Appearance (Clear) Urine pH (4.5-7.5) Ur Specific [place] (1.000-1.030) Urine Protein (Negative) Urine Glucose (UA) (Negative) Urine Ketones (Negative) Urine Blood (Negative) Urine Nitrite (Negative) Urine Bilirubin (Negative) Urine Urobilinogen (Negative) Ur Leukocyte Esterase (Negative) Urine WBC (Auto) (0-5) /hpf Urine RBC (Auto) (0-2) /hpf U Hyaline Cast (Auto) (0-2) /lpf U Epithel Cells (Auto) (0-2) /hpf Urine Bacteria (Auto) (None Seen) Amorphous Sediment (None Prsent) Hyaline Casts (None Presnt) /lpf Urine Mucus (None Prsent) Urine Comment Stool Occult Bld Scrn (Negative) PG Care Time/CCT Total # of Minutes Spent Total Time Spent with Patient: Total time spent is greater than 50% in coordination of care (as documented) at patient's floor/unit and/or counseling patient: Coding Level of Care Code 99759 INT INP/OBS CARE 2MIN Diagnoses Bacteremia R78.81
[2024-12-31] MEDS: PANTOprazole 40 MG TAB PO SCH (20:31)
--- NOTE | 2025-01-01 03:17 | Communication Note ---
Date of Service: January 01, 2025 Nurse alerted me around 0244 that pt was in the bathroom and had gotten pale and diaphoretic with BP 105/68 and HR 120s. No syncopal episode occurred. Nurse notes BM was bloody. I went to bedside to assess pt. He is laying in bed and states he is "feeling much better" now. 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 This episode was different since it did not involve a food bolus and he states he does not normally get d iaphoretic. Vitals returned to normal shortly after episode; BP 126/78 and HR 85. Telemetry reviewed and sinus tachycardia noted during time of episode. Will do CBC, CMP, lactate. EKG done after episode and seems similar to previous on 12/30. Will do LR 100/hr for 1 bag. Resident Activity Tracking Resident Involvement: Resident Care Provided Care Provided: Adult Hospital Medicine
[2025-01-01] MEDS: ONDANSETRON INJ 2 MG/ML 2 ML VIAL IV PRN (03:18)
[2025-01-01 03:26] LABS: Basophils # (auto) 0.02 K/uL (0.00-0.20); Basophils % (auto) 0.5 %; Eosinophils # (auto) 0.05 K/uL (0.00-0.50); Eosinophils % (auto) 1.3 %; Hematocrit (blood only) 29.9 % (42.0-52.0); Hemoglobin 10.2 g/dl (14.0-18.0); Immature Granulocytes # (auto) 0.02 K/uL (0.01-0.20); Immature Granulocytes % (auto) 0.5 %; Lymphocytes % (auto) 23.9 %; Mean Corpuscular Hgb Conc 34.1 g/dL (32.0-36.0); Mean Corpuscular Volume 96.8 fL (80.0-100.0); Mean Platelet Volume 12.2 fL (9.4-12.4); Monocytes # (auto) 0.34 K/uL (0.11-0.59); Neutrophils # (auto) 2.43 K/uL (1.40-6.50); Neutrophils % (auto) 64.8 %; Platelet Count 98 K/uL (130-400); RDW Coefficient of Variation 12.4 % (11.5-14.5); RDW Standard Deviation 43.7 fL (36.4-46.3); Red Blood Count 3.09 M/uL (4.70-6.10); White Blood Count 3.76 K/ul (4.8-10.8)
[2025-01-01 03:42] LABS: Calcium 7.7 mg/dl (8.6-10.3); Potassium 3.9 mmol/L (3.5-5.1)
[2025-01-01] MEDS: LACTATED RINGER'S 1,000 ML IV SCH (03:44)
[2025-01-01 03:48] LABS: BUN Creatinine Ratio 28.6 (10-20); Creatinine Clr Calc Pharmacy 78.8 ml/min
[2025-01-01 03:49] LABS: Albumin Globulin Ratio 1.4 (0.9-2); Albumin Level 3.3 gm/dl (3.4-5.0); BUN Creatinine Ratio 29.2 (10-20); Bilirubin,Total 0.5 mg/dl (0.2-1.0); Calcium 7.8 mg/dl (8.6-10.3); Creatinine Clr Calc Pharmacy 80.5 ml/min; Globulin 2.3 gm/dl (2.5-4.0); Potassium 3.8 mmol/L (3.5-5.1); Total Protein 5.6 gm/dl (6.0-8.3)
[2025-01-01] MEDS: LACTATED RINGER'S 500 ML IV ONE (04:19)
--- NOTE | 2025-01-01 09:24 | Gastroenterology Progress Note ---
Date of Service January 01, 2025 Assessment & Plan (1) Rectal bleeding: Plan: I suspect this is hemorrhoidal or diverticular bleeding. I will get records from [facility] and see exactly what we found on procedures. Will continue to follow Admission and Anticipated Discharge Date Admission Date: December 30, 2024 Subjective Patient has had "7" episodes of bleeding since 3 am. He describes it as red, nurse describes it as mahogony. Nurse says most of them have been a small amount and a second nurse says the one she saw was "moderate". There is no pain with it. He recalls me doing EGD and colonoscopy on him in July. I will check the records. H/H in the 10's. Physical Exam Physical Exam: Very anxious but in no distress Results & Data Vital Signs (Past 12 Hours) Vital Signs Temp Pulse Pulse Resp BP Pulse Ox O2 Del Method 01/01/25 08:06 36.8 C 101 H 18 135/81 96 Room Air 01/01/25 07:07 80 01/01/25 03:56 37 C 110 H 20 114/77 97 Room Air 01/01/25 02:45 36.7 C 85 18 126/78 97 Room Air 01/01/25 02:37 120 H 105/58 L 12/31/24 23:00 37.2 C 70 18 128/73 94 Room Air 12/31/24 22:35 70
[2025-01-01 09:56] LABS: C. diff 027-NAP1-BI NEGATIVE; Cdiff Toxin B Gene (2yr or >) Negative Cdiff Gene (Neg)
--- NOTE | 2025-01-01 12:37 | Hospitalist Progress Note ---
Date of Service January 01, 2025 Assessment & Plan (1) Bacteremia: (2) Catheter-associated urinary tract infection: (3) Rodriguez catheter in place: (4) E. coli UTI: (5) Leukopenia: (6) Thrombocytopenia: (7) Benign prostatic hyperplasia: (8) History of hemicolectomy: (9) Prostate cancer: (10) Anxiety: Plan This is a 69yo male with recently diagnosed prostate cancer at [facility] in November 2024, BPH, and chronic rodriguez catheter usage for about 4 months, who presents on account of positive blood culture result. On Friday of this week began with fevers, chills, fatigue, weakness, poor appetite, and dark-appearing urine. Due to persistent symptoms he came to [facility] ER on 12/29, had u/a suggestive of UTI, urine & blood cx's were dispatched, and he received IV cefepime during that ER visit. Sent home on PO cipro - took 1 dose last night, and a 2nd dose this morning. His blood cultures from 12/29/24 turned positive for gram negative rods early this morning and our ER called the patient asking him to come to the ER for admission. Urine cx from 12/29/24 is growing e.coli, and [employer] showed that the gram negative reyes in the blood is also e.coli. No resistance genes were seen on [employer] testing. GI bleed Patient has had about 7 episodes of blood in stool overnight GI thinks it may be hemorrhoidal or diverticular bleed Awating for records from [facility] Monitor H and H #e.coli bacteremia / sepsis - -source - urinary tract in the setting of chronic rodriguez usage -repeat blood cx's sent from the ER for test of cure and source control -received one dose of IV cefepime and one dose PO cipro -per [employer] testing no resistance detected -Cultures have finalized -Will continue IV Rocephin 2gm daily while in hospital -Discharge on PO ciprofloxacin for 7 days #catheter-associated UTI - -last rodriguez exchange 12/30/24 in the ER -Continue IV ceftriaxone for now discharge on PO cipro Pause on Tele Patient has a long history of oesophageal spasms resulting in pauses and vasovagal symptoms #leukopenia, thrombocytopenia - -suspect due to sepsis/bacteremia -Continue to monitor #Hypertension - -cont atenolol but lower the dose to 25mg/day from 50mg/day #Hyperlipidemia - -cont statin #dehydration - -NS at 100cc/hr at least for 1-2 liters -BMP am -diet as tolerated #anxiety - -cont ativan 1mg BID; this is chronic med for him per the PDMP #hyperglycemia - -Now under better conytrol #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 Physical Exam Physical Exam: The patient is awake, alert and oriented 3, well developed and well nourished, normocephalic and atraumatic, lying in bed and in no acute distress. HEENT--PERRL, EOMI, mucous membranes and oropharynx mildly dry Neck--supple. No JVD. No bruits. Thyroid normal, trachea midline, no adenopathy. Heart--normal S1 and S2. No murmurs, rubs or gallops. Lungs--clear bilaterally, no respiratory distress, no accessory muscle use. Abdomen--normal bowel sounds and soft. Extremities--no cyanosis or clubbing. No edema. Dermatologic--normal skin turgor, normal color, no abnormal lymph nodes, no rash. Neurologic--cranial nerves II through XII grossly intact. Rheumatologic--normal range of motion. Psychiatric--normal affect. Results & Data Results & Data Vital Signs (Past 12 Hours) Vital Signs Temp Pulse Pulse Resp BP BP Pulse Ox 01/01/25 12:10 97.9 F 76 20 125/81 97 01/01/25 10:06 01/01/25 08:06 98.2 F 101 H 18 135/81 96 01/01/25 07:07 80 01/01/25 03:56 98.6 F 110 H 20 114/77 97 01/01/25 02:45 98.1 F 85 18 126/78 97 01/01/25 02:37 120 H 105/58 L O2 Del Method 01/01/25 12:10 Room Air 01/01/25 10:06 Room Air 01/01/25 08:06 Room Air 01/01/25 07:07 01/01/25 03:56 Room Air 01/01/25 02:45 Room Air 01/01/25 02:37 PG Care Time/CCT Total # of Minutes Spent Total Time Spent with Patient: Total time spent is greater than 50% in coordination of care (as documented) at patient's floor/unit and/or counseling patient: Coding Level of Care Code 04134 SUB INP/OBS CARE 2/35MIN Diagnoses Bacteremia R78.81 Catheter-associated urinary tract infection T83.511A; N39.[address] Z97.8 E. coli UTI N39.0; B96.20 Leukopenia D72.819 Thrombocytopenia D69.6 Benign prostatic hyperplasia N40.0 History of hemicolectomy Z90.49 Prostate cancer C61 Anxiety F41.9 Time Spent (min) 35
[2025-01-01 16:01] LABS: Hematocrit (blood only) 26.5 % (42.0-52.0); Hemoglobin 8.9 g/dl (14.0-18.0)
[2025-01-02 08:38] LABS: Hematocrit (blood only) 26.8 % (42.0-52.0); Hemoglobin 9.3 g/dl (14.0-18.0); Mean Corpuscular Hemoglobin 33.3 pg (25.0-34.0); Mean Corpuscular Hgb Conc 34.7 g/dL (32.0-36.0); Mean Corpuscular Volume 96.1 fL (80.0-100.0); Platelet Count 124 K/uL (130-400); RDW Coefficient of Variation 12.2 % (11.5-14.5); RDW Standard Deviation 43.3 fL (36.4-46.3); Red Blood Count 2.79 M/uL (4.70-6.10); White Blood Count 4.64 K/ul (4.8-10.8)
[2025-01-02 09:12] LABS: BUN Creatinine Ratio 14.3 (10-20); Calcium 8.1 mg/dl (8.6-10.3); Creatinine Clr Calc Pharmacy 85.3 ml/min; Potassium 3.6 mmol/L (3.5-5.1)
--- NOTE | 2025-01-02 10:12 | Gastroenterology Progress Note ---
Date of Service January 02, 2025 Assessment & Plan (1) Rectal bleeding: Plan: I suspect he did have a diverticular hemorrhage and that it has stopped. I tried to reassure him that the fact that he has had no more bowel movements is a positive thing. I don't plan any intervention now. Admission and Anticipated Discharge Date Admission Date: December 30, 2024 Subjective Doing better today. Notified by staff that he had a brown stool yesterday and he reports no further stools since then. he is still worried and anxious and wants to have another BM before he feels comfortable. Physical Exam Physical Exam: He looks well Constitutional: WD/WN, vitals as above Results & Data Vital Signs (Past 12 Hours) Vital Signs Temp Pulse Pulse Resp BP BP Pulse Ox 01/02/25 07:00 36.7 C 68 18 111/68 94 01/02/25 03:28 36.6 C 61 18 108/66 97 01/01/25 23:40 56 L 01/01/25 22:28 36.6 C 60 18 104/64 95 O2 Del Method 01/02/25 07:00 Room Air 01/02/25 03:28 Room Air 01/01/25 23:40 01/01/25 22:28 Room Air
--- NOTE | 2025-01-02 11:56 | Hospitalist Progress Note ---
Date of Service January 02, 2025 Assessment & Plan (1) Bacteremia: (2) Catheter-associated urinary tract infection: (3) Rodriguez catheter in place: (4) E. coli UTI: (5) Leukopenia: (6) Thrombocytopenia: (7) Benign prostatic hyperplasia: (8) History of hemicolectomy: (9) Prostate cancer: (10) Anxiety: Plan This is a 69yo male with recently diagnosed prostate cancer at [facility] in November 2024, BPH, and chronic rodriguez catheter usage for about 4 months, who presents on account of positive blood culture result. On Friday of this week began with fevers, chills, fatigue, weakness, poor appetite, and dark-appearing urine. Due to persistent symptoms he came to [facility] ER on 12/29, had u/a suggestive of UTI, urine & blood cx's were dispatched, and he received IV cefepime during that ER visit. Sent home on PO cipro - took 1 dose last night, and a 2nd dose this morning. His blood cultures from 12/29/24 turned positive for gram negative rods early this morning and our ER called the patient asking him to come to the ER for admission. Urine cx from 12/29/24 is growing e.coli, and [employer] showed that the gram negative reyes in the blood is also e.coli. No resistance genes were seen on Bio[employer] testing. GI bleed GI thinks it may be hemorrhoidal or diverticular bleed Hb is stable However, he says he wants to have another BM and make sure there is no blood before discharge #e.coli bacteremia / sepsis - -source - urinary tract in the setting of chronic rodriguez usage -repeat blood cx's sent from the ER for test of cure and source control -received one dose of IV cefepime and one dose PO cipro -per BioFire testing no resistance detected -Cultures have finalized -Will continue IV Rocephin 2gm daily while in hospital -Discharge on PO ciprofloxacin for 7 days #catheter-associated UTI - -last rodriguez exchange 12/30/24 in the ER -Continue IV ceftriaxone for now discharge on PO cipro Pause on Tele Patient has a long history of oesophageal spasms resulting in pauses and va sovagal symptoms #leukopenia, thrombocytopenia - -suspect due to sepsis/bacteremia -Continue to monitor #Hypertension - -cont atenolol but lower the dose to 25mg/day from 50mg/day #Hyperlipidemia - -cont statin #dehydration - -NS at 100cc/hr at least for 1-2 liters -BMP am -diet as tolerated #anxiety - -cont ativan 1mg BID; this is chronic med for him per the PDMP #hyperglycemia - -Now under better conytrol #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 - -following with [facility] -prostatectomy planned for [place]/11/25 [place] [facility] [place]see HPI for details of recent PET-CT #DVT Proph - scd Disposition: he says he wants to have another BM and make sure there is no blood before discharge Admission and Anticipated Discharge Date Admission Date: December 30, 2024 Subjective patient seen and examined, he has not had a BM in 16 hrs, he says he wants to smiley ve another BM and make sure there is no blood before discharge Review of Systems Review of Systems: All systems reviewed are negative, apart from the ones contained in the history. Physical Exam Physical Exam: The patient is awake, alert and oriented 3, well developed and well nourished, normocephalic and atraumatic, lying in bed and in no acute distress. HEENT--PERRL, EOMI, mucous membranes and oropharynx mildly dry Neck--supple. No JVD. No bruits. Thyroid normal, trachea midline, no adenopathy. Heart--normal S1 and S2. No murmurs, rubs or gallops. Lungs--clear bilaterally, no respiratory distress, no accessory muscle use. Abdomen--normal bowel sounds and soft. Extremities--no cyanosis or clubbing. No edema. Dermatologic--normal skin turgor, normal color, no abnormal lymph nodes, no rash. Neurologic--cranial nerves II through XII grossly intact. Rheumatologic--normal range of motion. Psychiatric--normal affect. Results & Data Results & Data Vital Signs (Past 12 Hours) Vital Signs Temp Pulse Resp BP BP Pulse Ox O2 Del Method 01/02/25 07:00 98.1 F 68 18 111/68 94 Room Air 01/02/25 03:28 97.9 F 61 18 108/66 97 Room Air PG Care Time/CCT Total # of Minutes Spent Total Time Spent with Patient: Total time spent is greater than 50% in coordination of care (as documented) at patient's floor/unit and/or counseling patient: Coding Level of Care Code 99238 SUB INP/OBS CARE MIN Diagnoses Bacteremia R78.81 Catheter-associated urinary tract infection T83.511A; N39.[address] Z97.8 E. coli UTI N39.0; B96.20 Leukopenia D72.819 Thrombocytopenia D69.6 Benign prostatic hyperplasia N40.0 History of hemicolectomy Z90.49 Prostate cancer C61 Anxiety F41.9 Time Spent (min) 35
[2025-01-03 08:10] VITALS: O2SAT 96
[2025-01-03 08:17] LABS: Hematocrit (blood only) 24.9 % (42.0-52.0); Hemoglobin 8.6 g/dl (14.0-18.0); Mean Corpuscular Hemoglobin 33.3 pg (25.0-34.0); Mean Corpuscular Hgb Conc 34.5 g/dL (32.0-36.0); Mean Corpuscular Volume 96.5 fL (80.0-100.0); Mean Platelet Volume 11.3 fL (9.4-12.4); Platelet Count 145 K/uL (130-400); RDW Coefficient of Variation 12.3 % (11.5-14.5); RDW Standard Deviation 43.2 fL (36.4-46.3); Red Blood Count 2.58 M/uL (4.70-6.10)
[2025-01-03 08:42] LABS: BUN Creatinine Ratio 12.4 (10-20); Calcium 8.2 mg/dl (8.6-10.3); Creatinine Clr Calc Pharmacy 80.5 ml/min; Potassium 3.5 mmol/L (3.5-5.1)
--- NOTE | 2025-01-03 11:51 | Discharge Summary ---
Date of Service January 03, 2025 Admission HPI Per Admitting Provider Pleasant 69yo male with recently diagnosed prostate cancer at [facility] in November 2024, BPH, and chronic rodriguez catheter usage for about 4 months - last rodriguez exchange was FridayDecember 24 at [facility]. On Friday of this week began with fevers, chills, fatigue, weakness, poor appetite, and dark-appearing urine. Due to persistent symptoms he came to [facility] ER on 12/29, had u/a suggestive of UTI, urine & blood cx's were dispatched, and he received IV cefepime during that ER visit. Sent home on PO cipro - took 1 dose last night, and a 2nd dose this morning. Had temp to 103 this morning. His blood cultures turned positive for gram negative rods early this morning and our ER called the patient asking him to come to the ER for admission. Urine cx from 12/29/24 is growing e.coli, and BioFire showed that the gram negative reyes in the blood is also e.coli. No resistance genes were seen on BioFire testing. Patient states he had a PET/CT on 12/20/[address] [facility]. I was able to secure the report from this scan - -no hydronephrosis was seen b/l -bladder wall thickening and multiple bladder diverticuli were seen -left renal cysts seen -no kidney stones -diverticulosis was seen but no diverticulitis -left 2nd rib sclerotic lesion seen concerning for metastatic disease -subcentimeter paraortic nodes - equivocal -uptake within the prostate is consistent with prostate ca He is scheduled to have prostatectomy for his BPH/Prostate cancer on 02/11/25 at [facility]. Follows with Dr Tyrese Miller at [facility]. Admission Exam (Per Admitting) Constitutional The patient is awake, alert and oriented 3, well developed and well nourished, normocephalic and atraumatic, lying in bed and in no acute distress. HEENT--PERRL, EOMI, mucous membranes and oropharynx mildly dry Neck--supple. No JVD. No bruits. Thyroid normal, trachea midline, no adenopathy. Heart--normal S1 and S2. No murmurs, rubs or gallops. Lungs--clear bilaterally, no respiratory distress, no accessory muscle use. Abdomen--normal bowel sounds and soft. Extremities--no cyanosis or clubbing. No edema. Dermatologic--normal skin turgor, normal color, no abnormal lymph nodes, no rash. Neurologic--cranial nerves II through XII grossly intact. Rheumatologic--normal range of motion. Psychiatric--normal affect. Discharge Data Consultations 12/30/24 15:13 ED Decision to Admit Stat 12/31/24 10:11 Consult Cardiology Routine 12/31/24 13:46 Consult Gastroenterology Routine Hospital Course (1) Bacteremia: (2) Catheter-associated urinary tract infection: (3) Rodriguez catheter in place: (4) E. coli UTI: (5) Leukopenia: (6) Thrombocytopenia: (7) Benign prostatic hyperplasia: (8) History of hemicolectomy: (9) Prostate cancer: (10) Anxiety: Plan This is a 69yo male with recently diagnosed prostate cancer at [facility] in November 2024, BPH, and chronic rodriguez catheter usage for about 4 months, who presents on account of positive blood culture result. On Friday of this week began with fevers, chills, fatigue, weakness, poor appetite, and dark-appearing urine. Due to persistent symptoms he came to [facility] ER on 12/29, had u/a suggestive of UTI, urine & blood cx's were dispatched, and he received IV cefepime during that ER visit. Sent home on PO cipro - took 1 dose last night, and a 2nd dose this morning. His blood cultures from 12/29/24 turned positive for gram negative rods early this morning and our ER called the patient asking him to come to the ER for admission. Urine cx from 12/29/24 is growing e.coli, and [employer] showed that the gram negative reyes in the blood is also e.coli. No resistance genes were seen on BioFire testing. GI bleed GI thinks it may be hemorrhoidal or diverticular bleed Hb is stable #e.coli bacteremia / sepsis - -source - urinary tract in the setting of chronic rodriguez usage -repeat blood cx's sent from the ER for test of cure and source control -received one dose of IV cefepime and one dose PO cipro -per BioFire testing no resistance detected -Cultures have finalized -Will continue IV Rocephin 2gm daily while in hospital -Discharge on PO ciprofloxacin for 10 days days #catheter-associated UTI - -last rodriguez exchange 12/30/24 in the ER -Continue IV ceftriaxone for now discharge on PO cipro Pause on Tele Patient has a long history of oesophageal spasms resulting in pauses and vasovagal symptoms #leukopenia, thrombocytopenia - -suspect due to sepsis/bacteremia -Continue to monitor #Hypertension - -cont atenolol but lower the dose to 25mg/day from 50mg/day #Hyperlipidemia - -cont statin #dehydration - -NS at 100cc/hr at least for 1-2 liters -BMP am -diet as tolerated #anxiety - -cont ativan 1mg BID; this is chronic med for him per the PDMP #hyperglycemia - -Now under better conytrol #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 coli UTI N39.0; B96.20 Leukopenia D72.819 Thrombocytopenia D69.6 Benign prostatic hyperplasia N40.0 History of hemicolectomy Z90.49 Prostate cancer C61 Anxiety F41.9 Time Spent (min) 35
[2025-01-03 12:22] VITALS: BP 128/65; PULSE 78; RESP 20; TEMP 97.7
--- NOTE | 2025-01-04 13:37 | Electrocardiogram Report ---
Test Reason : Blood Pressure : */* mmHG Vent. Rate : 77 BPM Atrial Rate : 77 BPM P-R Int : 142 ms QRS Dur : 96 ms QT Int : 398 ms P-R-T Axes : 33 -1 31 degrees QTcB Int : 450 ms Sinus rhythm with occasional Premature ventricular complexes Inferior infarct , age undetermined Cannot rule out Anterior infarct , age undetermined Abnormal ECG When compared with ECG of 30-Dec-2024 12:43, No significant change was found Confirmed by Kev Sanches ([id number]) on 01/04/2025 1:37:05 PM Referred By: REFERRED SELF Confirmed By: Kev Sanches
== END 2025-01-03 13:55 | disposition home or self-care (01) | DRG 698 ==
LOC: ED 12:31 → 2S 16:57 → SUATTDRO 16:57 → 2S 18:19